=== PATIENT | female | born 1975 | race Caucasian/White ===

== ENCOUNTER → 2016-07-19 | Outpatient (CLI) | payer OTHER ==
[~2016-07-19] MED LIST: ALBUAER INH; ALPR0.25 PO; ASPI81TA28 PO; CLR10 PO; CRFUDL PO; CYCL10TA6 PO; ESTR1TAB2 PO; FLUO10CA48 PO; PREG100C PO; PROM25TA9 PO; PRT40 PO; SUMA100T16 PO
[2016-07-19 12:27] LABS: BASO % 0.9 %; BASO ABS # 0.08 K/uL (0-0.2); COMPLETE YES; HEMATOCRIT 37.3 % (37-47); IG% 0.2 %; LYMPH % 26.2 %; LYMPH ABS # 2.24 K/uL (1.2-3.4); MEAN CELL VOLUME 86.1 fL (80-100); MEAN CORPUSCULAR HEMOGLOBIN 29.8 pg (25-34); MEAN CORPUSCULAR HGB CONC 34.6 g/dl (32-36); MEAN PLATELET VOLUME 12.1 fL (7.4-10.4); MONO % 5.5 %; NEUT % 62.2 %; PLATELET COUNT 249 K/uL (130-400); RED BLOOD COUNT 4.33 M/uL (4.2-5.4); WHITE BLOOD COUNT 8.55 K/uL (4.8-10.8)
[2016-07-19 13:07] LABS: ALB/GLOB RATIO 0.9 (0.9-2); ALKALINE PHOSPHATASE 151 U/L (45-117); ALT/SGPT 45 U/L (12-78); AST/SGOT 18 U/L (15-37); BLOOD UREA NITROGEN 18 mg/dl (7-18); BUN/CREATININE RATIO 19.1 (10-20); CALCIUM 8.4 mg/dl (8.5-10.1); CARBON DIOXIDE 21 mmol/L (21-32); CHLORIDE 102 mmol/L (98-107); CHOLESTEROL 287 mg/dl (0-200); CHOLESTEROL/HDL RATIO 11.5; CREATININE 0.96 mg/dl (0.60-1.20); GLUCOSE 106 mg/dl (70-99); HDL CHOLESTEROL 25 mg/dl; POTASSIUM 3.4 mmol/L (3.5-5.1); SODIUM 138 mmol/L (136-145); TRIGLYCERIDES 1196 mg/dl (0-150)
[2016-07-19 13:24] LABS: ESTIMATED AVERAGE GLUCOSE 117 mg/dl; HA1C FLAG Normal (Normal)
== END | disposition home or self-care (01) ==
LOC: C.LABPBG 08:37
PROVIDERS: ATTEND Internal Medicine
DX: Z86.39 Personal history of other endocrine, nutritional and metabolic disease (principal)

== ENCOUNTER → 2017-03-18 | Outpatient (CLI) | payer OTHER ==
[2017-03-18 12:19] LABS: BASO % 0.5 %; BASO ABS # 0.05 K/uL (0-0.2); COMPLETE YES; EOS % 3.8 %; HEMATOCRIT 38.9 % (37-47); IG% 0.2 %; LYMPH % 26.3 %; LYMPH ABS # 2.41 K/uL (1.2-3.4); MEAN CELL VOLUME 89.2 fL (80-100); MEAN CORPUSCULAR HGB CONC 33.7 g/dl (32-36); MONO % 6.7 %; NEUT % 62.5 %; PLATELET COUNT 237 K/uL (130-400); RED BLOOD COUNT 4.36 M/uL (4.2-5.4); WHITE BLOOD COUNT 9.15 K/uL (4.8-10.8)
[2017-03-18 12:43] LABS: ESTIMATED AVERAGE GLUCOSE 114 mg/dl; HA1C FLAG Normal (Normal)
[2017-03-18 17:45] LABS: ALT/SGPT 45 U/L (12-78); AST/SGOT 27 U/L (15-37); BLOOD UREA NITROGEN 17 mg/dl (7-18); BUN/CREATININE RATIO 18.9 (10-20); CALCIUM 9.1 mg/dl (8.5-10.1); CARBON DIOXIDE 27 mmol/L (21-32); CHLORIDE 104 mmol/L (98-107); CREATININE 0.91 mg/dl (0.60-1.20); GLUCOSE 81 mg/dl (70-99); POTASSIUM 3.8 mmol/L (3.5-5.1); SODIUM 138 mmol/L (136-145)
[2017-03-18 17:56] LABS: ALB/GLOB RATIO 0.9 (0.9-2); ALKALINE PHOSPHATASE 129 U/L (45-117)
[2017-03-18 18:04] LABS: LYME DISEASE AB IGG NEG (NEG); LYME DISEASE AB IGM NEG (NEG)
== END | disposition home or self-care (01) ==
LOC: C.LABPBG 10:55
PROVIDERS: ATTEND Internal Medicine
DX: M79.7 Fibromyalgia (principal); E78.1 Pure hyperglyceridemia; I10 Essential (primary) hypertension; E78.6 Lipoprotein deficiency; E78.5 Hyperlipidemia, unspecified; G89.29 Other chronic pain; G62.9 Polyneuropathy, unspecified

== ENCOUNTER → 2017-06-03 | Outpatient (CLI) | payer OTHER ==
[2017-06-03 17:57] LABS: BLOOD UREA NITROGEN 13 mg/dl (7-18); CALCIUM 8.5 mg/dl (8.5-10.1); CARBON DIOXIDE 26 mmol/L (21-32); CREATININE 1.58 mg/dl (0.60-1.20); GLUCOSE,FASTING 101 mg/dl (70-99); POTASSIUM 3.8 mmol/L (3.5-5.1); SODIUM 137 mmol/L (136-145)
[2017-06-03 18:00] LABS: CHOLESTEROL 261 mg/dl (0-200)
== END | disposition home or self-care (01) ==
LOC: C.LABPBG 15:29
PROVIDERS: ATTEND Physician Assistant
DX: E78.5 Hyperlipidemia, unspecified (principal)

== ENCOUNTER → 2017-07-15 | Outpatient (CLI) | payer OTHER ==
[2017-07-15 11:51] LABS: HEMOGLOBIN A1C 5.6 % (4.5-5.6)
[2017-07-15 11:59] LABS: ALBUMIN 3.3 gm/dl (3.4-5.0); BLOOD UREA NITROGEN 15 mg/dl (7-18); CALCIUM 8.5 mg/dl (8.5-10.1); CARBON DIOXIDE 23 mmol/L (21-32); CREATININE 1.03 mg/dl (0.60-1.20); GLUCOSE 138 mg/dl (70-99); POTASSIUM 3.4 mmol/L (3.5-5.1); SODIUM 134 mmol/L (136-145)
== END | disposition home or self-care (01) ==
LOC: C.LABPBG 07:44
PROVIDERS: ATTEND Internal Medicine
DX: N64.52 Nipple discharge (principal); E88.81 Metabolic syndrome and other insulin resistance; N17.9 Acute kidney failure, unspecified

== ENCOUNTER 2022-02-07 21:28 | Inpatient (IN) ==
[2022-02-07] MEDS ORDERED: ONDANSETRON INJ 2 MG/ML 2 ML VIAL ONE (21:33)
[2022-02-07] MEDS ORDERED: ONDANSETRON INJ 2 MG/ML 2 ML VIAL IV STA (21:33)
[2022-02-07] MEDS ORDERED: diphenhydrAMINE 50 MG/ML VIAL IV STA (21:33)
[2022-02-07] MEDS ORDERED: diphenhydrAMINE 50 MG/ML VIAL ONE (21:33)
[2022-02-07] MEDS ORDERED: OPTIRAY 300 500mL IV ONE (21:45)
[2022-02-07 21:56] LABS: Basophils # (auto) 0.09 K/uL (0-0.2); Basophils % (auto) 1.1 %; Eosinophils # (auto) 0.37 K/uL (0-0.50); Eosinophils % (auto) 4.5 %; Hematocrit (blood only) 37.8 % (34.1-44.9); Immature Granulocytes # (auto) 0.03 K/uL (0.00-0.02); Immature Granulocytes % (auto) 0.4 %; Lymphocytes # (auto) 2.48 K/uL (1.2-3.4); Mean Corpuscular Hemoglobin 30.7 pg (25.0-34.0); Mean Corpuscular Hgb Conc 34.4 g/dL (32.0-36.0); Mean Corpuscular Volume 89.2 fL (80.0-100.0); Mean Platelet Volume 10.8 fL (9.4-12.3); Monocytes # (auto) 0.63 K/uL (0.24-0.82); Monocytes % (auto) 7.6 %; Neutrophils # (auto) 4.66 K/uL (1.4-6.5); Neutrophils % (auto) 56.4 %; Platelet Count 246 K/uL (130-400); RDW Coefficient of Variation 12.2 % (11.5-14.5); RDW Standard Deviation 39.8 fL (36.4-46.3); Red Blood Count 4.24 M/uL (3.93-5.22); White Blood Count 8.26 K/ul (4.8-10.8)
[2022-02-07 22:04] LABS: iSTAT Creatinine 1.1 mg/dl (0.6-1.3); iSTAT Hemoglobin 13.3 g/dl (12.0-16.0); iSTAT Ionized Calcium 1.06 mmol/l (1.12-1.32); iSTAT Potassium 3.2 mmol/L (3.3-5.0)
[2022-02-07 22:13] LABS: Partial Thromboplastin Time 26.5 Seconds (21.0-31.0); Prothrombin Time 10.7 Seconds (9.0-12.0)
--- NOTE | 2022-02-07 22:13 | Emergency Department Note ---
History of Present Illness General Chief complaint: Stroke Alert History of Present Illness Maximum Pain Intensity: 8 38-year-old female presents to the ED with a chief complaint of strokelike symptoms. The patient states that she has been feeling a little off for the past several days. She states that her balance seem to be a little off and her vision has not been completely normal. She states its been a little blurry. She states that she has been getting dizzy on occasion. Tonight at about 8:15 PM the patient had a sudden sharp headache in the frontal portion of the head followed by some paresthesias and numbness in the right side. She specifically reports some paresthesias and numbness in the right face, right arm and right leg. She also developed sudden onset of weakness in the right leg, right arm and right face. The patient states that she called EMS and was transported here for evaluation. EMS contacted me prior to arrival and a stroke alert was called. She was sent to CT scan upon arrival. The patient reports a previous history of " TIA". This occurred about 5 years ago. When she describes it, she states that she did not recover for months. She did have a complete recovery, however. The patient states that she does not take daily aspirin. She is not on any blood thinners. Prehospital EKG shows a sinus rhythm. Prehospital blood sugar was normal. Home Medications Medication Instructions Recorded Confirmed Type latanoprost 0.005 % eye drops 1 drops ophthalmic (eye) QPM #2.5 11/26/18 02/07/22 Rx mL compressor, for nebulizer #1 ea 03/11/19 02/07/22 Rx sumatriptan succinate 100 mg tablet 100 mg PO Q2H PRN Migraine Headache 05/01/19 02/07/22 History albuterol sulfate 2.5 mg/0.5 mL 2.5 mg (0.5 mL) inhalation Q6H PRN 09/12/20 02/07/22 Rx solution for nebulization shortness of breath or wheezing #30 ea blood-glucose meter (OneTouch #1 ea 09/13/20 02/07/22 Rx Ultra2 Meter kit) albuterol sulfate 90 mcg/actuation 2 puff inhalation Q6H PRN 03/20/21 02/07/22 Rx aerosol inhaler (Proventil HFA) shortness of breath or wheezing #6.7 grams cholecalciferol (vitamin D3) 50 50 mcg PO DAILY #90 tabs 08/14/21 02/07/22 Rx mcg (2,000 unit) tablet estradiol 1 mg tablet 1 mg PO DAILY #90 tabs 09/11/21 02/07/22 Rx fluticasone 100 mcg-salmeterol 50 1 inh inhalation BID #60 ea 10/16/21 02/07/22 Rx mcg/dose blistr powdr for inhalation (Wixela Inhub) OneTouch Ultra Test (blood sugar #100 ea 11/06/21 02/07/22 Rx diagnostic) promethazine 25 mg tablet 25 mg PO Q6H PRN nausea and 12/20/21 02/07/22 Rx vomiting #10 tabs cholestyramine-aspartame 4 gram 4 g PO BID #60 ea 02/07/22 02/07/22 Rx oral powder for susp in a packet (Cholestyramine Light) ezetimibe 10 mg tablet 10 mg PO DAILY #30 tabs 02/07/22 02/07/22 Rx famotidine 20 mg tablet (Heartburn 20 mg PO BID 02/07/22 02/07/22 History Relief (famotidine)) fluoxetine 10 mg capsule 10 mg PO DAILY 02/07/22 02/07/22 History losartan 50 mg tablet 50 mg PO DAILY #30 tabs 02/07/22 02/07/22 Rx potassium chloride 20 mEq 20 meq PO BID 02/07/22 02/07/22 History tablet,extended release trazodone 50 mg tablet 50 mg PO DAILY #30 tabs 02/07/22 02/07/22 Rx Allergies Allergy/AdvReac Type Severity Reaction Status Date / Time hydromorphone Allergy Intermediate hives, Verified 02/07/22 07:03 nausea, vomiting Iodinated Contrast Media Allergy Intermediate rash, Verified 02/07/22 07:03 vomiting magnesium sulfate Allergy Intermediate hives, Verified 02/07/22 07:03 nausea, vomiting ondansetron Allergy Intermediate n/v, hives Verified 02/07/22 07:03 diltiazem Allergy Unknown Unknown Verified 02/07/22 07:03 gemfibrozil [From Lopid] Allergy Unknown Unknown Verified 02/07/22 07:03 lisinopril Allergy Unknown Unknown Verified 02/07/22 07:03 phenytoin [From Dilantin] Allergy Unknown Unknown Verified 02/07/22 07:03 Knmwfqk-CXS-MpB Reductase AdvReac Intermediate Muscle pain Verified 02/07/22 07:03 Inhibitor [Ssmdwqv-Pig-Gbk Reductase Inhibitor] Past Med/Surg History Medical History Anxiety Asthma Cervicalgia Depression Dyslipidemia (high LDL; low HDL) Elevated triglycerides with high cholesterol Eye movement abnormality Fibromyalgia Glaucoma Hearing loss HTN (hypertension) HTN, goal below 140/90 Hypertriglyceridemia Hypokalemia Kidney stone Metabolic syndrome X Migraine headache NAFLD (nonalcoholic fatty liver disease) Pre-diabetes Right sided weakness Vitamin D deficiency Surgical History History of section History of cholecystectomy History of dilation and curettage History of hysterectomy Family History Father Family history of anxiety disorder Colorectal cancer Coronary heart disease Diabetes Hypertension Kidney disease Prostate cancer Mother Family history of anxiety disorder Colorectal cancer Depression Family history of gallbladder disease Hypertension Kidney disease Breast cancer Grandfather (Paternal) Myocardial infarction Denies family history of Ovarian cancer Social History Smoking Status: Former smoker Second Hand Exposure: No; Hx Alcohol Use: No Hx Substance Use: No Preferred Language: Barbadian Communication Ability: Effective Visual Impairment: No Limitations Hearing Ability: Normal [place] Performer Required: No Beliefs That Will Affect Care: None marital status: Current Living Situation: Family current occupational status: disabled Feels Safe at Home: Yes Childhood Exposure to Second-Hand Smoke: No Diet Comment: regular caffeine: No (once in a while) during the past year weight has: remained stable Dental Care, Regularly: Yes Physical Activity Frequency: 3-4 Times per Week Physical Activity Frequency Comment: walking Seatbelt Use: always Sunscreen Use: Yes Review of Systems A total of 10 systems reviewed and were otherwise negative Physical Exam Vital Signs Vital Signs - 24 hr 02/07/22 21:59 02/07/22 21:59 02/07/22 21:54 Temperature 36.9 C Temperature Source Oral Pulse Rate 97 H 89 Pulse Rate [Finger] Pulse Rate from SpO2 Sensor 88 Pulse Rhythm [Finger] Pulse Strength [Finger] Respiratory Rate 18 14 Respiratory Effort / Characteristics Respiratory Depth Blood Pressure 174/101 H 168/82 H Blood Pressure [Left Arm] Blood Pressure Mean 125 110 Blood Pressure Mean [Left Arm] Blood Pressure Position [Left Arm] Pulse Oximetry 97 97 98 Oxygen Delivery Method Room Air Room Air Room Air Sepsis Recent Fever Within 48 Hours No Sepsis New/Unexplained Change in Mental Status No Sepsis Action Taken by Nursing No Action Required 02/07/22 22:00 02/07/22 22:10 02/07/22 22:19 Temperature Temperature Source Pulse Rate 91 H 92 H 89 Pulse Rate [Finger] Pulse Rate from SpO2 Sensor 93 H 94 H 88 Pulse Rhythm [Finger] Pulse Strength [Finger] Respiratory Rate 15 14 18 Respiratory Effort / Characteristics Respiratory Depth Blood Pressure 155/130 H 160/99 H 161/96 H Blood Pressure [Left Arm] Blood Pressure Mean 138 119 117 Blood Pressure Mean [Left Arm] Blood Pressure Position [Left Arm] Pulse Oximetry 97 97 98 Oxygen Delivery Method Sepsis Recent Fever Within 48 Hours Sepsis New/Unexplained Change in Mental Status Sepsis Action Taken by Nursing 02/07/22 22:20 02/07/22 22:30 02/07/22 22:56 Temperature Temperature Source Pulse Rate 89 89 Pulse Rate [Finger] 82 Pulse Rate from SpO2 Sensor 89 87 Pulse Rhythm [Finger] Regular Pulse Strength [Finger] Normal Respiratory Rate 14 20 17 Respiratory Effort / Characteristics Non-Labored Spontaneous Respiratory Depth Normal Blood Pressure 143/87 H 151/82 H Blood Pressure [Left Arm] 138/85 Blood Pressure Mean 105 105 Blood Pressure Mean [Left Arm] 102 Blood Pressure Position [Left Arm] Sitting Pulse Oximetry 97 97 95 Oxygen Delivery Method Room Air Sepsis Recent Fever Within 48 Hours Sepsis New/Unexplained Change in Mental Status Sepsis Action Taken by Nursing CONSTITUTIONAL/VITAL SIGNS: Reviewed / noted above. GENERAL: Non-toxic in appearance. INTEGUMENTARY: Warm, dry, and [place]. HEAD: Normocephalic. EYES: without scleral icterus or trauma. ENT/OROPHARYNX: clear and moist. LYMPHADENOPATHY/NECK: Is supple without lymphadenopathy or meningismus. RESPIRATORY: Clear to auscultation bilaterally. No increased work of breathing. CARDIOVASCULAR: Regular rate and rhythm. GI/ABDOMEN: Soft and nontender. No organomegaly or pulsatile mass. EXTREMITIES: Warm and well perfused. NEUROLOGICAL: The patient has right-sided facial weakness. Reports sensory change on the right side of face compared to left, right arm compared to the left and right leg compared to the left. She also has right arm weakness. Essentially unable to lift it off the bed although when I raise the arm for her, she slowly lowers it. Similar occurrence with the right leg on my exam. Also with regards to the right facial weakness, when asked to smile, she does not raise her right side of her face, however when I asked her to blow out air from her cheeks, the air leaks on the left side of the mouth. PSYCHIATRIC: normal affect. MUSCULOSKELETAL: Normally developed with good muscle tone. TRIAGE NURSING DOCUMENTATION REVIEWED. Course Administered Medications Discontinued Medications Acetaminophen (Acetaminophen 1000 Mg/100 Ml Iv) Confirm Administered Dose 1,000 mg IV .STK-MED ONE Stop: 02/07/22 22:30 Last Admin: 02/07/22 22:34 Dose: 1,000 mg Documented By: ZE Diphenhydramine HCl (Diphenhydramine 50 Mg/Ml Vial) Confirm Administered Dose 50 mg .ROUTE .STK-MED ONE Stop: 02/07/22 21:34 Last Admin: 02/07/22 21:35 Dose: 50 mg Documented By: JOSE ALEJANDRO Diphenhydramine HCl (Diphenhydramine 50 Mg/Ml Vial) 50 mg IV NOW STA Stop: 02/07/22 21:34 Last Admin: 02/07/22 21:56 Dose: Not Given Documented By: JOSE ALEJANDRO Tenecteplase 16 mg/ Syringe 3.2 mls @ 38.4 mls/min IV NOW ONE; Protocol Stop: 02/07/22 22:30 Last Admin: 02/07/22 22:25 Dose: 38.4 mls/min Documented By: ZE Co-signed By: FELECIA Acetaminophen (Ofirmev) 1,000 mg in 100 mls @ 400 mls/hr IV NOW STA Stop: 02/07/22 22:43 Last Admin: 02/07/22 22:36 Dose: Not Given Documented By: ZE Ioversol (Optiray 300 500ml) 95 ml IV ONCE ONE Stop: 02/07/22 21:46 Last Admin: 02/07/22 21:45 Dose: 95 ml Documented By: TERRELL Ondansetron HCl (Ondansetron Inj 2 Mg/Ml 2 Ml Vial) Confirm Administered Dose 4 mg .ROUTE .STK-MED ONE Stop: 02/07/22 21:34 Last Admin: 02/07/22 21:35 Dose: 4 mg Documented By: JOSE ALEJANDRO Ondansetron HCl (Ondansetron Inj 2 Mg/Ml 2 Ml Vial) 4 mg IV NOW STA Stop: 02/07/22 21:34 Last Admin: 02/07/22 21:56 Dose: Not Given Documented By: JOSE ALEJANDRO Sodium Chloride (Sodium Chloride 0.9% 10ml Flush) 20 ml IV NOW STA Stop: 02/07/22 22:19 Last Admin: 02/07/22 22:25 Dose: 20 ml Documented By: ZE Critical Care Time Critical Care Time: Yes Total Critical Care Time: 45 I have personally spent 45 minutes of critical care time in the direct ma nagement of this patient. This includes bedside care, interpretation of diagnostic studies, and testing, discussion with consultants, patient, and family members, and other required patient management activities. This 45 minutes is in excess of all separately billable procedures. Medical Decision Making Differential Diagnosis Differential includes acute coronary syndrome, myocardial infarction, CVA, TIA, anemia, infection, pneumonia, UTI, pyelonephritis, poor nutrition, dehydration, electrolyte disturbance,hypoglycemia. Medical Records Attestation: I reviewed the patient's medical records. Home Medications Current Medication List: was personally reviewed by me Laboratory Data Attestation: I reviewed the patient's lab results. Result diagrams: 02/07/22 21:46 02/07/22 21:46 Lab Results 02/07/22 02/07/22 02/07/22 Range/Units 21:43 21:46 21:46 WBC (4.8-10.8) K/ul RBC (3.93-5.22) M/uL Hgb (12.0-16.0) g/dl POC Hgb (12.0-16.0) g/dl Hct (34.1-44.9) % POC Hct (37-47) % MCV (80.0-100.0) fL MCH (25.0-34.0) pg MCHC (32.0-36.0) g/dL RDW Std Deviation (36.4-46.3) fL RDW Coeff of Johnna (11.5-14.5) % Plt Count (130-400) K/uL MPV (9.4-12.3) fL Immature Gran % (Auto) % Neut % (Auto) % Lymph % (Auto) % Butler % (Auto) % Eos % (Auto) % Baso % (Auto) % Neut # (Auto) (1.4-6.5) K/uL Lymph # (Auto) (1.2-3.4) K/uL Butler # (Auto) (0.24-0.82) K/uL Eos # (Auto) (0-0.50) K/uL Baso # (Auto) (0-0.2) K/uL Immature Gran # (Auto) (0.00-0.02) K/uL PT (9.0-12.0) Seconds INR (0.9-1.1) APTT (21.0-31.0) Seconds PTT Ratio POC Sodium (135-144) mmol/L Sodium (136-145) mmol/L POC Potassium (3.3-5.0) mmol/L Potassium (3.5-5.1) mmol/L POC Chloride (101-112) mmol/L Chloride (98-107) mmol/L Carbon Dioxide (21-32) mmol/L POC Total CO2 (24-31) mmol/L Anion Gap (3-11) POC Anion Gap (16-25) mmol/L POC BUN (7-18) mg/dl BUN (6-23) mg/dl Creatinine (0.6-1.2) mg/dl POC Creatinine (0.6-1.3) mg/dl Est Cr Clr Drug Dosing ml/min Est GFR ( Amer) ml/min Est GFR (Non-Af Amer) ml/min BUN/Creatinine Ratio (10-20) Glucose (70-99(Fasting)) mg/dl POC Glucose 87 (70-99) mg/dl POC Glucose (other) (70-99) mg/dl Calcium (8.5-10.1) mg/dl POC Ioniz Calcium Ashley (1.12-1.32) mmol/l Magnesium (1.7-2.4) mg/dl Total Bilirubin (0.2-1.0) mg/dl AST (13-39) U/L ALT (7-52) U/L Alkaline Phosphatase (34-104) U/L Troponin I High Sens (0-14) pg/ml Total Protein (6.0-8.3) gm/dl Albumin (3.4-5.0) gm/dl Globulin (2.5-4.0) gm/dl Albumin/Globulin Ratio (0.9-2) HCG, Qual Negative (Negative) SARS-CoV-2, RNA, NAAT (NEGATIVE) Blood Type A Positive Antibody Screen NEGATIVE 02/07/22 02/07/22 02/07/22 Range/Units 21:46 21:46 21:46 WBC 8.26 (4.8-10.8) K/ul RBC 4.24 (3.93-5.22) M/uL Hgb 13.0 (12.0-16.0) g/dl POC Hgb (12.0-16.0) g/dl Hct 37.8 (34.1-44.9) % POC Hct (37-47) % MCV 89.2 (80.0-100.0) fL MCH 30.7 (25.0-34.0) pg MCHC 34.4 (32.0-36.0) g/dL RDW Std Deviation 39.8 (36.4-46.3) fL RDW Coeff of Johnna 12.2 (11.5-14.5) % Plt Count 246 (130-400) K/uL MPV 10.8 (9.4-12.3) fL Immature Gran % (Auto) 0.4 % Neut % (Auto) 56.4 % Lymph % (Auto) 30.0 % Butler % (Auto) 7.6 % Eos % (Auto) 4.5 % Baso % (Auto) 1.1 % Neut # (Auto) 4.66 (1.4-6.5) K/uL Lymph # (Auto) 2.48 (1.2-3.4) K/uL Butler # (Auto) 0.63 (0.24-0.82) K/uL Eos # (Auto) 0.37 (0-0.50) K/uL Baso # (Auto) 0.09 (0-0.2) K/uL Immature Gran # (Auto) 0.03 H (0.00-0.02) K/uL PT 10.7 (9.0-12.0) Seconds INR 1.0 (0.9-1.1) APTT 26.5 (21.0-31.0) Seconds PTT Ratio 1.0 POC Sodium (135-144) mmol/L Sodium 134 L (136-145) mmol/L POC Potassium (3.3-5.0) mmol/L Potassium 3.2 L (3.5-5.1) mmol/L POC Chloride (101-112) mmol/L Chloride 100 (98-107) mmol/L Carbon Dioxide 29 (21-32) mmol/L POC Total CO2 (24-31) mmol/L Anion Gap 5 (3-11) POC Anion Gap (16-25) mmol/L POC BUN (7-18) mg/dl BUN 16 (6-23) mg/dl Creatinine 1.09 (0.6-1.2) mg/dl POC Creatinine (0.6-1.3) mg/dl Est Cr Clr Drug Dosing 49.4 ml/min Est GFR ( Amer) 69.5 ml/min Est GFR (Non-Af Amer) 60.0 ml/min BUN/Creatinine Ratio 14.7 (10-20) Glucose 74 (70-99(Fasting)) mg/dl POC Glucose (70-99) mg/dl POC Glucose (other) (70-99) mg/dl Calcium 8.5 (8.5-10.1) mg/dl POC Ioniz Calcium Ashley (1.12-1.32) mmol/l Magnesium 2.1 (1.7-2.4) mg/dl Total Bilirubin 0.4 (0.2-1.0) mg/dl AST 17 (13-39) U/L ALT 15 (7-52) U/L Alkaline Phosphatase 80 (34-104) U/L Troponin I High Sens 3.1 (0-14) pg/ml Total Protein 7.1 (6.0-8.3) gm/dl Albumin 4.0 (3.4-5.0) gm/dl Globulin 3.1 (2.5-4.0) gm/dl Albumin/Globulin Ratio 1.3 (0.9-2) HCG, Qual (Negative) SARS-CoV-2, RNA, NAAT (NEGATIVE) Blood Type Antibody Screen 02/07/22 02/07/22 Range/Units 21:51 22:05 WBC (4.8-10.8) K/ul RBC (3.93-5.22) M/uL Hgb (12.0-16.0) g/dl POC Hgb 13.3 (12.0-16.0) g/dl Hct (34.1-44.9) % POC Hct 39 (37-47) % MCV (80.0-100.0) fL MCH (25.0-34.0) pg MCHC (32.0-36.0) g/dL RDW Std Deviation (36.4-46.3) fL RDW Coeff of Johnna (11.5-14.5) % Plt Count (130-400) K/uL MPV (9.4-12.3) fL Immature Gran % (Auto) % Neut % (Auto) % Lymph % (Auto) % Butler % (Auto) % Eos % (Auto) % Baso % (Auto) % Neut # (Auto) (1.4-6.5) K/uL Lymph # (Auto) (1.2-3.4) K/uL Butler # (Auto) (0.24-0.82) K/uL Eos # (Auto) (0-0.50) K/uL Baso # (Auto) (0-0.2) K/uL Immature Gran # (Auto) (0.00-0.02) K/uL PT (9.0-12.0) Seconds INR (0.9-1.1) APTT (21.0-31.0) Seconds PTT Ratio POC Sodium 138 (135-144) mmol/L Sodium (136-145) mmol/L POC Potassium 3.2 L (3.3-5.0) mmol/L Potassium (3.5-5.1) mmol/L POC Chloride 99 L (101-112) mmol/L Chloride (98-107) mmol/L Carbon Dioxide (21-32) mmol/L POC Total CO2 26 (24-31) mmol/L Anion Gap (3-11) POC Anion Gap 18.0 (16-25) mmol/L POC BUN 15 (7-18) mg/dl BUN (6-23) mg/dl Creatinine (0.6-1.2) mg/dl POC Creatinine 1.1 (0.6-1.3) mg/dl Est Cr Clr Drug Dosing ml/min Est GFR ( Amer) ml/min Est GFR (Non-Af Amer) ml/min BUN/Creatinine Ratio (10-20) Glucose (70-99(Fasting)) mg/dl POC Glucose (70-99) mg/dl POC Glucose (other) 78 (70-99) mg/dl Calcium (8.5-10.1) mg/dl POC Ioniz Calcium Ashley 1.06 L (1.12-1.32) mmol/l Magnesium (1.7-2.4) mg/dl Total Bilirubin (0.2-1.0) mg/dl AST (13-39) U/L ALT (7-52) U/L Alkaline Phosphatase (34-104) U/L Troponin I High Sens (0-14) pg/ml Total Protein (6.0-8.3) gm/dl Albumin (3.4-5.0) gm/dl Globulin (2.5-4.0) gm/dl Albumin/Globulin Ratio (0.9-2) HCG, Qual (Negative) SARS-CoV-2, RNA, NAAT NEGATIVE (NEGATIVE) Blood Type Antibody Screen Imaging Data My Impression: Chest x-ray: Per my interpretation shows no acute disease. No pneumothorax or pneumonia. Radiologist's Impression: Noncontrast CT scan of the brain: Per the radiologist, there is no acute disease. CTA head and neck did not show any occlusive disease. ECG Data Attestation: I personally reviewed and interpreted this ECG as follows: Additional Comments: Twelve-lead EKG: Per my interpretation shows normal sinus rhythm at a rate of 90. No ST elevation. No PVCs. Normal QTC. MDM Narrative 46-year-old female presents with a chief complaint of strokelike symptoms. Stroke alert was called prior to the patient's arrival. Stroke neurology was contacted. I did speak with Dr. Rosalina Kolb, [facility] neurologist, about the patient. She evaluated the patient in the ED through telemedicine service. The patient does have some right-sided face, right arm and right leg deficits. The CT scan of the brain as well as CT angiograms of the head and neck did not show any acute abnormalities. Chest x-ray was negative for acute disease. EKG shows a normal sinus rhythm. Blood work was unremarkable. The de cision was made to provide thrombolytics after risk versus benefits and verbal consent was obtained. The patient received TNKase. She was also given some IV Tylenol for headache. Prior to the CT scan she was given IV Benadryl and IV Zofran as she reports an allergy to IV contrast. The patient will be admitted by the hospitalist service for further evaluation and care. Impression & Plan Acute cerebrovascular accident (CVA) Discharge Plan Visit Data Chief Complaint: Stroke Alert ED Provider: Juan Ray Discharge Problem: Acute cerebrovascular accident (CVA) Patient Disposition: Being Evaluated by Hospitalist Forms Stand Alone Forms: [facility] Prescriptions Prescriptions: No Action albuterol sulfate 2.5 mg/0.5 mL solution for nebulization 2.5 mg INH Q6H PRN (Reason: shortness of breath or wheezing) Qty: 30 3RF (DME) blood-glucose meter [OneTouch Ultra2 Meter] Kit See Dose Instructions .ROUTE .MEDSUPPLY Qty: 1 0RF Rx Instructions: As directed cholecalciferol (vitamin D3) 50 mcg (2,000 unit) tablet 50 mcg PO DAILY Qty: 90 3RF estradiol 1 mg tablet 1 mg PO DAILY Qty: 90 3RF fluticasone propion-salmeterol [Wixela Inhub] 100-50 mcg/dose blister with device 1 inh inhalation BID Qty: 60 5RF (DME) OneTouch Ultra Test Strip See Rx Instructions .Route Qty: 100 11RF Rx Instructions: TEST 1-3 TIMES DAILY. DX: R73.03 promethazine 25 mg tablet 25 mg PO Q6H PRN (Reason: nausea and vomiting) Qty: 10 3RF ezetimibe 10 mg tablet 10 mg PO DAILY Qty: 30 2RF losartan 50 mg tablet 50 mg PO DAILY Qty: 30 2RF (DME) compressor, for nebulizer device See Dose Instructions .ROUTE .MEDSUPPLY Qty: 1 0RF Dose Instruction: As directed Rx Instructions: As directed albuterol sulfate [Proventil HFA] 90 mcg/actuation HFA aerosol inhaler 2 puff INH Q6H PRN (Reason: shortness of breath or wheezing) Qty: 6.7 5RF sumatriptan succinate 100 mg tablet 100 mg PO Q2H PRN (Reason: Migraine Headache) Rx Instructions: Take 1 tablet at onset of headache; may repeat in 2 hrs if needed. Max 200mg/day. latanoprost 0.005 % drops 1 drops OP QPM Qty: 2.5 3RF trazodone 50 mg tablet 50 mg PO DAILY Qty: 30 2RF Cholestyramine Light 4 gram powder in packet 4 g PO BID Qty: 60 1RF Rx Instructions: administer w/meal; avoid other meds within 1hr before or 4-6hr after dose famotidine [Heartburn Relief (famotidine)] 20 mg tablet 20 mg PO BID potassium chloride 20 mEq tablet extended release 20 meq PO BID fluoxetine 10 mg capsule 10 mg PO DAILY Referrals Referrals: Jas Galeas MD [Primary Care Provider] -
[2022-02-07] MEDS ORDERED: STAT IV STA (22:18)
[2022-02-07] MEDS ORDERED: SODIUM CHLORIDE 0.9% 10ML FLUSH IV STA (22:18)
[2022-02-07 22:22] LABS: Pregnancy Test, Serum Negative (Negative)
[2022-02-07 22:23] LABS: Albumin Globulin Ratio 1.3 (0.9-2); BUN Creatinine Ratio 14.7 (10-20); Bilirubin,Total 0.4 mg/dl (0.2-1.0); Calcium 8.5 mg/dl (8.5-10.1); Creatinine Clr Calc Pharmacy 49.4 ml/min; Est GFR (African American) 69.5 ml/min; Globulin 3.1 gm/dl (2.5-4.0); Magnesium 2.1 mg/dl (1.7-2.4); Potassium 3.2 mmol/L (3.5-5.1); Total Protein 7.1 gm/dl (6.0-8.3)
[2022-02-07 22:25] LABS: Troponin I High Sensitivity 3.1 pg/ml (0-14)
[2022-02-07] MEDS ORDERED: ACETAMINOPHEN 1000 MG/100 ML IV IV ONE (22:29)
[2022-02-07] MEDS ORDERED: ACETAMINOPHEN 1,000 MG/100 ML VIAL IV STA (22:29)
[2022-02-07] MEDS ORDERED: TENECTEPLASE 16 MG in SYRINGE 0 ML IV ONE (22:29)
[2022-02-07] MEDS ORDERED: No Aspirin within 24hrs of THROMBOLYTIC-Stroke PO SCH (22:30)
--- NOTE | 2022-02-07 23:13 | History & Physical Report ---
Date of Service February 07, 2022 Assessment & Plan (1) Stroke-like symptom: Plan: 46yo Female PMH Hx TIA Anxiety Depression Migraines Hypertriglyceridemia HTN metabolic syndrome asthma chronic pain syndrome fibromyalgia crohn's disease admitted for stroke like symptoms. Stroke like symptoms -started 8:15 on 02/07, received tenecteplase within 3hr of symptoms -CTA head neck stat read negative for acute findings, normal architecture -CXR unremarkable -consulted neuro -neuro check q2h -admitted to ICU -ordered echo -ordered hypercoagulability panel -ordered PT/OT -ordered dysphagia screen -ordered speech eval -NPO Hypertriglyceridemia -Triglycerides 580 -Cholesterol 234 -continue Ezetinibe -Continue cholestyramine Hypokalemia -K 3.2 -ordered renin, aldosterone labs -continue KCl 20mg PO BID HTN -continue losartan Metabolic Syndrome -last A1c 5.4 on 12/21, ordered recheck -BSG checks Anxiety/Depression -continue fluoxetine Glaucoma -continue latanoprost eye drops GERD -continue famotidine Asthma -albuterol inhaler PRN FENa: NPO Code Status: Full DVT PPX: SCDs PT/OT: ordered Case Management: pending Dispo: med/tele Betzaida Sarkar Do PGY 2, FCM (2) Migraine headache: (3) Pre-diabetes: (4) Asthma: (5) Anxiety: (6) Chronic pain disorder: (7) Metabolic syndrome X: (8) Hypertriglyceridemia: (9) HTN, goal below 140/90: (10) Fibromyalgia: (11) IBS (irritable bowel syndrome): (12) Hypokalemia: History of Present Illness Chief Complaint: Stroke like Symptoms Primary Care Provider: Jas Galeas MD 46yo Female PMH Hx TIA Anxiety Depression Migraines Hypertriglyceridemia HTN metabolic syndrome asthma chronic pain syndrome fibromyalgia crohn's disease admitted for stroke like symptoms. She received Tenecteplase in ED, stat read of CT head neck negative for acute findings. Patient complain of feeling 'off' since this saturday, states her balance has been off. Starting yesterday she describes a headache across the front and top of her head, states it 'felt like a lightning strike'. She states tonight around 8:15 the pain became bad, states her vision became blurry, felt more unstable and forgetful, she could not feel or move her right side of body. Patient grijalva not recall any SOB nausea vomiting fever. Patient states she had high triglycerides being managed by her PCP. She had similar symptoms 5 years ago was diagnosed with a TIA started on ASA, however was later taken off ASA per her provider. She has previously gone through a course of PT. Patient has history migraine has not had one for several years, states this felt different from a migraine. Patient states her mom also had strokes in her 50's Allergies Allergy/AdvReac Type Severity Reaction Status Date / Time hydromorphone Allergy Intermediate hives, Verified 02/07/22 07:03 nausea, vomiting Iodinated Contrast Media Allergy Intermediate rash, Verified 02/07/22 07:03 vomiting magnesium sulfate Allergy Intermediate hives, Verified 02/07/22 07:03 nausea, vomiting ondansetron Allergy Intermediate n/v, hives Verified 02/07/22 07:03 diltiazem Allergy Unknown Unknown Verified 02/07/22 07:03 gemfibrozil [From Lopid] Allergy Unknown Unknown Verified 02/07/22 07:03 lisinopril Allergy Unknown Unknown Verified 02/07/22 07:03 phenytoin [From Dilantin] Allergy Unknown Unknown Verified 02/07/22 07:03 Ggglwab-MWD-WmM Reductase AdvReac Intermediate Muscle pain Verified 02/07/22 07:03 Inhibitor [Wllizir-Anr-Hst Reductase Inhibitor] Home Medications Medication Instructions Recorded Confirmed Type latanoprost 0.005 % eye drops 1 drops ophthalmic (eye) QPM #2.5 11/26/18 02/07/22 Rx mL compressor, for nebulizer #1 ea 03/11/19 02/07/22 Rx sumatriptan succinate 100 mg tablet 100 mg PO Q2H PRN Migraine Headache 05/01/19 02/07/22 History albuterol sulfate 2.5 mg/0.5 mL 2.5 mg (0.5 mL) inhalation Q6H PRN 09/12/20 02/07/22 Rx solution for nebulization shortness of breath or wheezing #30 ea blood-glucose meter (OneTouch #1 ea 09/13/20 02/07/22 Rx Ultra2 Meter kit) albuterol sulfate 90 mcg/actuation 2 puff inhalation Q6H PRN 03/20/21 02/07/22 Rx aerosol inhaler (Proventil HFA) shortness of breath or wheezing #6.7 grams cholecalciferol (vitamin D3) 50 50 mcg PO DAILY #90 tabs 08/14/21 02/07/22 Rx mcg (2,000 unit) tablet estradiol 1 mg tablet 1 mg PO DAILY #90 tabs 09/11/21 02/07/22 Rx fluticasone 100 mcg-salmeterol 50 1 inh inhalation BID #60 ea 10/16/21 02/07/22 Rx mcg/dose blistr powdr for inhalation (Wixela Inhub) OneTouch Ultra Test (blood sugar #100 ea 11/06/21 02/07/22 Rx diagnostic) promethazine 25 mg tablet 25 mg PO Q6H PRN nausea and 12/20/21 02/07/22 Rx vomiting #10 tabs cholestyramine-aspartame 4 gram 4 g PO BID #60 ea 02/07/22 02/07/22 Rx oral powder for susp in a packet (Cholestyramine Light) ezetimibe 10 mg tablet 10 mg PO DAILY #30 tabs 02/07/22 02/07/22 Rx famotidine 20 mg tablet (Heartburn 20 mg PO BID 02/07/22 02/07/22 History Relief (famotidine)) fluoxetine 10 mg capsule 10 mg PO DAILY 02/07/22 02/07/22 History losartan 50 mg tablet 50 mg PO DAILY #30 tabs 02/07/22 02/07/22 Rx potassium chloride 20 mEq 20 meq PO BID 02/07/22 02/07/22 History tablet,extended release trazodone 50 mg tablet 50 mg PO DAILY #30 tabs 02/07/22 02/07/22 Rx Past Med/Surg History Medical History Anxiety Asthma Cervicalgia Depression Dyslipidemia (high LDL; low HDL) Elevated triglycerides with high cholesterol Eye movement abnormality Fibromyalgia Glaucoma Hearing loss HTN (hypertension) HTN, goal below 140/90 Hypertriglyceridemia Hypokalemia Kidney stone Metabolic syndrome X Migraine headache NAFLD (nonalcoholic fatty liver disease) Pre-diabetes Right sided weakness Vitamin D deficiency Surgical History History of section History of cholecystectomy History of dilation and curettage History of hysterectomy Family History Father Family history of anxiety disorder Colorectal cancer Coronary heart disease Diabetes Hypertension Kidney disease Prostate cancer Mother Family history of anxiety disorder Colorectal cancer Depression Family history of gallbladder disease Hypertension Kidney disease Breast cancer Grandfather (Paternal) Myocardial infarction Denies family history of Ovarian cancer Social History Smoking Status: Former smoker Second Hand Exposure: No; Hx Alcohol Use: No Hx Substance Use: No Preferred Language: Portuguese Communication Ability: Unable Visual Impairment: No Limitations Hearing Ability: Normal Lan/Wan Engineer Required: No Beliefs That Will Affect Care: None marital status: Single Current Living Situation: Family current occupational status: disabled Feels Safe at Home: Yes Childhood Exposure to Second-Hand Smoke: No Diet Comment: regular caffeine: No (once in a while) during the past year weight has: remained stable Dental Care, Regularly: Yes Physical Activity Frequency: 3-4 Times per Week Physical Activity Frequency Comment: walking Seatbelt Use: always Sunscreen Use: Yes Assistive Devices: None Review of Systems Review of Systems: see hpi Physical Exam Constitutional: well developed, cooperative, + cushingoid and + overweight Eyes: PERRL, conjunctivae normal, anicteric sclerae ENMT: external ear and nose normal, oropharynx normal Neck: trachea midline, no thyromegaly Respiratory: normal respiratory effort, lungs clear to auscultation Cardiovascular: RRR, no murmur, no edema Chest (Breasts): Chest: normal inspection of chest Gastrointestinal (Abdomen): normal bowel sounds, soft, nontender, no hepatosplenomegaly Musculoskeletal: +5 strength in L UE and LE. No movement noted in R LE. Able to lightly squeeze finger with R hand Skin: no rashes, warm and dry Neurologic: Motor/Sensory: + abnormal movement (unable to move right leg, unable to move right arm. ) and + sensory deficit (on right face including forehead, right arm and leg) Cranial Nerves: EOM intact bilaterally, tongue midline and symmetric palate elevation; + abnormal facial strength (right facial droop) and + hearing impairment (on right) Psychiatric: A+Ox3, euthymic affect Results & Data Results & Data ([facility]) Vital Signs (Past 12 Hours) Vital Signs Temp Pulse Pulse Resp BP BP Pulse Ox 02/07/22 22:56 82 17 138/85 95 02/07/22 22:30 89 20 151/82 H 97 02/07/22 22:20 89 14 143/87 H 97 02/07/22 22:19 89 18 161/96 H 98 02/07/22 22:10 92 H 14 160/99 H 97 02/07/22 22:00 91 H 15 155/130 H 97 02/07/22 21:54 89 14 168/82 H 98 02/07/22 21:59 97 02/07/22 21:59 36.9 C 97 H 18 174/101 H 97 O2 Del Method 02/07/22 22:56 Room Air 02/07/22 22:30 02/07/22 22:20 02/07/22 22:19 02/07/22 22:10 02/07/22 22:00 02/07/22 21:54 Room Air 02/07/22 21:59 Room Air 02/07/22 21:59 Room Air Diagnostic Findings Laboratory Results WBC 8.26 K/ul (4.8-10.8) 02/07/22 21:46 RBC 4.24 M/uL (3.93-5.22) 02/07/22 21:46 Hgb 13.0 g/dl (12.0-16.0) 02/07/22 21:46 POC Hgb 13.3 g/dl (12.0-16.0) 02/07/22 21:51 Hct 37.8 % (34.1-44.9) 02/07/22 21:46 POC Hct 39 % (37-47) 02/07/22 21:51 MCV 89.2 fL (80.0-100.0) 02/07/22 21:46 MCH 30.7 pg (25.0-34.0) 02/07/22 21:46 MCHC 34.4 g/dL (32.0-36.0) 02/07/22 21:46 RDW Std Deviation 39.8 fL (36.4-46.3) 02/07/22 21:46 RDW Coeff of Johnna 12.2 % (11.5-14.5) 02/07/22 21:46 Plt Count 246 K/uL (130-400) 02/07/22 21:46 MPV 10.8 fL (9.4-12.3) 02/07/22 21:46 Immature Gran % (Auto) 0.4 % 02/07/22 21:46 Neut % (Auto) 56.4 % 02/07/22 21:46 Lymph % (Auto) 30.0 % 02/07/22 21:46 Walton % (Auto) 7.6 % 02/07/22 21:46 Eos % (Auto) 4.5 % 02/07/22 21:46 Baso % (Auto) 1.1 % 02/07/22 21:46 Neut # (Auto) 4.66 K/uL (1.4-6.5) 02/07/22 21:46 Lymph # (Auto) 2.48 K/uL (1.2-3.4) 02/07/22 21:46 Walton # (Auto) 0.63 K/uL (0.24-0.82) 02/07/22 21:46 Eos # (Auto) 0.37 K/uL (0-0.50) 02/07/22 21:46 Baso # (Auto) 0.09 K/uL (0-0.2) 02/07/22 21:46 Immature Gran # (Auto) 0.03 K/uL (0.00-0.02) H 02/07/22 21:46 PT 10.7 Seconds (9.0-12.0) 02/07/22 21:46 INR 1.0 (0.9-1.1) 02/07/22 21:46 APTT 26.5 Seconds (21.0-31.0) 02/07/22 21:46 PTT Ratio 1.0 02/07/22 21:46 POC Sodium 138 mmol/L (135-144) 02/07/22 21:51 Sodium 134 mmol/L (136-145) L 02/07/22 21:46 POC Potassium 3.2 mmol/L (3.3-5.0) L 02/07/22 21:51 Potassium 3.2 mmol/L (3.5-5.1) L 02/07/22 21:46 POC Chloride 99 mmol/L (101-112) L 02/07/22 21:51 Chloride 100 mmol/L (98-107) 02/07/22 21:46 Carbon Dioxide 29 mmol/L (21-32) 02/07/22 21:46 POC Total CO2 26 mmol/L (24-31) 02/07/22 21:51 Anion Gap 5 (3-11) 02/07/22 21:46 POC Anion Gap 18.0 mmol/L (16-25) 02/07/22 21:51 POC BUN 15 mg/dl (7-18) 02/07/22 21:51 BUN 16 mg/dl (6-23) 02/07/22 21:46 Creatinine 1.09 mg/dl (0.6-1.2) 02/07/22 21:46 POC Creatinine 1.1 mg/dl (0.6-1.3) 02/07/22 21:51 Est Cr Clr Drug Dosing 49.4 ml/min 02/07/22 21:46 Est GFR ( Amer) 69.5 ml/min 02/07/22 21:46 Est GFR (Non-Af Amer) 60.0 ml/min 02/07/22 21:46 BUN/Creatinine Ratio 14.7 (10-20) 02/07/22 21:46 Glucose 74 mg/dl (70-99(Fasting)) 02/07/22 21:46 POC Glucose 87 mg/dl (70-99) 02/07/22 21:43 POC Glucose (other) 78 mg/dl (70-99) 02/07/22 21:51 Calcium 8.5 mg/dl (8.5-10.1) 02/07/22 21:46 POC Ioniz Calcium Ashley 1.06 mmol/l (1.12-1.32) L 02/07/22 21:51 Magnesium 2.1 mg/dl (1.7-2.4) 02/07/22 21:46 Total Bilirubin 0.4 mg/dl (0.2-1.0) 02/07/22 21:46 AST 17 U/L (13-39) 02/07/22 21:46 ALT 15 U/L (7-52) 02/07/22 21:46 Alkaline Phosphatase 80 U/L (34-104) 02/07/22 21:46 Troponin I High Sens 3.1 pg/ml (0-14) 02/07/22 21:46 Total Protein 7.1 gm/dl (6.0-8.3) 02/07/22 21:46 Albumin 4.0 gm/dl (3.4-5.0) 02/07/22 21:46 Globulin 3.1 gm/dl (2.5-4.0) 02/07/22 21:46 Albumin/Globulin Ratio 1.3 (0.9-2) 02/07/22 21:46 HCG, Qual Negative (Negative) 02/07/22 21:46 SARS-CoV-2, RNA, NAAT NEGATIVE (NEGATIVE) 02/07/22 22:05 Blood Type A Positive 02/07/22 21:46 Antibody Screen NEGATIVE 02/07/22 21:46 Medications Administered Current Inpatient Medications Aspirin (No Aspirin Within 24hrs Of Thrombolytic-Stroke) 1 each PO UD CHRISTIANNE Stop: 02/08/22 22:29 Critical Care Time 40 minutes Supervising Physician Co-Signing Physician Notes Attending addendum: I have physically seen this patient, have supervised the medical residents activities, and agree with the H&P unless as otherwise noted. Assessment and Plan: Strokelike symptoms/stroke alert/status post thrombolytics in the ED tenecteplase- Admit to ICU with stroke status post tPA protocol day 1 order set Order hypercoagulability panel, consult PT/OT/speech/neurology N.p.o. until passes speech swallowing study or bedside evaluation Would hold estradiol upon resumption of oral medications unless absolutely indicated Check hemoglobin A1c, fasting lipid panel Consult industrial seamstress team Hypertriglyceridemia- Resume Zetia and cholestyramine when able to take p.o., and pending results of repeat fasting lipid panel Hypokalemia- Ongoing history check a renin and aldosterone level Replace with IV fluids Repeat laboratories in a.m. Remaining orders and notations as noted Resident Activity Tracking Resident Involvement: Resident Care Provided Care Provided: Adult Hospital Medicine (1) Asthma Asthma complication type: uncomplicated Asthma persistence: intermittent Asthma severity: mild Qualified Code(s): J45.20 - Mild intermittent asthma, uncomplicated
[2022-02-08] MEDS ORDERED: ALBUTEROL 0.5% NEB SOLN 2.5 MG/0.5 ML VIAL INH PRN (00:29)
[2022-02-08] MEDS ORDERED: POLYETHYLENE (MIRALAX) 17 GM PACK PO PRN (00:29)
[2022-02-08] MEDS ORDERED: ONDANSETRON INJ 2 MG/ML 2 ML VIAL IV PRN (00:29)
[2022-02-08] MEDS ORDERED: ACETAMINOPHEN 325 MG TAB PO PRN (00:29)
[2022-02-08] MEDS ORDERED: fentaNYL citrate 100 MCG/2 ML VIAL IV STA (01:12)
[2022-02-08] MEDS ORDERED: LORazepam 0.25 MG in SYRINGE 0.125 ML IV STA (01:16)
--- NOTE | 2022-02-08 01:17 | Critical Care Consultation ---
Date of Consultation February 08, 2022 Assessment & Plan (1) Stroke-like symptom: Impression: 46-year-old female presents to the ICU with strokelike symptoms and right-sided hemiparalysis, now s/p TNKase administration and undergoing 24-hour post thrombolytic protocol Neuro - CVA?Patient presents with strokelike symptoms. History of TIA but no longer taking aspirin. Also patient's mother had 2 strokes in her 50s -CT head, CTA head and neck unremarkable -TNKase administered 3 hours after symptoms at 20-25 -Follow-up MRI, follow-up echo -Follow-up lipid panel and A1c -Follow-up neurology recommendations with ASA, Plavix -Speech, PT, OT -Continue monitoring in ICU for 24 hours for post thrombolytic protocol, follow-up CT head at 24 hours Anxiety/depressioncontinue fluoxetine Glaucomacontinue Latanoprost eyedrops Cardiac - HTNhold losartan for now given contrast. Allow permissive hypertension Hypertriglyceridemiatriglycerides 580, cholesterol 234 -Continue ezetimibe, cholestyramine Respiratory - Lungs clear to auscultation. History of asthma. Albuterol as needed. Continuo us monitoring pulse ox GI - N.p.o. RENAL/LYTES - Creatinine within normal limits, monitor routine BMPs replete electrolytes as indicated - Rate I's and O's ENDO - No history of diabetes or thyroid disease. ICU hyperglycemic protocol HEME - H&H stable, monitor for signs of bleeding. Routine CBC ID - No indication for infectious process at this time LINES/IV ACCESS - Peripheral IVs DVT PROPHYLAXIS - SCDs, hold on anticoagulation given TNKase Thank you for allowing us to participate in the care of this patient. Please refer to my attending physician's documentation for any further recommendations. (2) Metabolic syndrome X: (3) Asthma: (4) Anxiety: (5) Chronic pain disorder: (6) Depression: (7) Migraine headache: (8) Hypertriglyceridemia: (9) Dyslipidemia (high LDL; low HDL): (10) NAFLD (nonalcoholic fatty liver disease): (11) HTN (hypertension): History of Present Illness Attending Physician: Christiano Corrigan MD History of Present Illness Patient is a 46-year-old female with past medical history of TIA, anxiety and depression, fibromyalgia, migraines, hypertriglycerides, HTN, asthma, and Crohn's disease. She presented to the emergency department with strokelike symptoms with right-sided weakness/numbness. Patient stated that she has felt like her balance was off for the past 2 days. She reported an abrupt frontal headache by symptoms of blurred vision, and numbness and paralysis in her right upper and lower extremity. At that point she called EMS. On arrival to the ER she was taken for CT head and CTA head and neck which were unremarkable. She was evaluated by telemetry neurology decision was made to proceed with TNKase which was administered at 5. Patient is now admitted to ICU for 24-hour monitoring protocol following thrombolytics administration. Allergies Allergy/AdvReac Type Severity Reaction Status Date / Time hydromorphone Allergy Intermediate hives, Verified 02/07/22 07:03 nausea, vomiting Iodinated Contrast Media Allergy Intermediate rash, Verified 02/07/22 07:03 vomiting magnesium sulfate Allergy Intermediate hives, Verified 02/07/22 07:03 nausea, vomiting ondansetron Allergy Intermediate n/v, hives Verified 02/07/22 07:03 diltiazem Allergy Unknown Unknown Verified 02/07/22 07:03 gemfibrozil [From Lopid] Allergy Unknown Unknown Verified 02/07/22 07:03 lisinopril Allergy Unknown Unknown Verified 02/07/22 07:03 phenytoin [From Dilantin] Allergy Unknown Unknown Verified 02/07/22 07:03 Seznygd-UDX-FoX Reductase AdvReac Intermediate Muscle pain Verified 02/07/22 07:03 Inhibitor [Ezreeha-Fck-Npt Reductase Inhibitor] Home Medications Medication Instructions Recorded Confirmed Type latanoprost 0.005 % eye drops 1 drops ophthalmic (eye) QPM #2.5 11/26/18 02/07/22 Rx mL compressor, for nebulizer #1 ea 03/11/19 02/07/22 Rx sumatriptan succinate 100 mg tablet 100 mg PO Q2H PRN Migraine Headache 05/01/19 02/07/22 History albuterol sulfate 2.5 mg/0.5 mL 2.5 mg (0.5 mL) inhalation Q6H PRN 09/12/20 02/07/22 Rx solution for nebulization shortness of breath or wheezing #30 ea blood-glucose meter (OneTouch #1 ea 09/13/20 02/07/22 Rx Ultra2 Meter kit) albuterol sulfate 90 mcg/actuation 2 puff inhalation Q6H PRN 03/20/21 02/07/22 Rx aerosol inhaler (Proventil HFA) shortness of breath or wheezing #6.7 grams cholecalciferol (vitamin D3) 50 50 mcg PO DAILY #90 tabs 08/14/21 02/07/22 Rx mcg (2,000 unit) tablet estradiol 1 mg tablet 1 mg PO DAILY #90 tabs 09/11/21 02/07/22 Rx fluticasone 100 mcg-salmeterol 50 1 inh inhalation BID #60 ea 10/16/21 02/07/22 Rx mcg/dose blistr powdr for inhalation (Wixela Inhub) OneTouch Ultra Test (blood sugar #100 ea 11/06/21 02/07/22 Rx diagnostic) promethazine 25 mg tablet 25 mg PO Q6H PRN nausea and 12/20/21 02/07/22 Rx vomiting #10 tabs cholestyramine-aspartame 4 gram 4 g PO BID #60 ea 02/07/22 02/07/22 Rx oral powder for susp in a packet (Cholestyramine Light) ezetimibe 10 mg tablet 10 mg PO DAILY #30 tabs 02/07/22 02/07/22 Rx famotidine 20 mg tablet (Heartburn 20 mg PO BID 02/07/22 02/07/22 History Relief (famotidine)) fluoxetine 10 mg capsule 10 mg PO DAILY 02/07/22 02/07/22 History losartan 50 mg tablet 50 mg PO DAILY #30 tabs 02/07/22 02/07/22 Rx potassium chloride 20 mEq 20 meq PO BID 02/07/22 02/07/22 History tablet,extended release trazodone 50 mg tablet 50 mg PO DAILY #30 tabs 02/07/22 02/07/22 Rx Patient History Medical History Anxiety Asthma Cervicalgia Depression Dyslipidemia (high LDL; low HDL) Elevated triglycerides with high cholesterol Eye movement abnormality Fibromyalgia Glaucoma Hearing loss HTN (hypertension) HTN, goal below 140/90 Hypertriglyceridemia Hypokalemia Kidney stone Metabolic syndrome X Migraine headache NAFLD (nonalcoholic fatty liver disease) Pre-diabetes Right sided weakness Vitamin D deficiency Surgical History History of section History of cholecystectomy History of dilation and curettage History of hysterectomy Family History Father Family history of anxiety disorder Colorectal cancer Coronary heart disease Diabetes Hypertension Kidney disease Prostate cancer Mother Family history of anxiety disorder Colorectal cancer Depression Family history of gallbladder disease Hypertension Kidney disease Breast cancer Grandfather (Paternal) Myocardial infarction Denies family history of Ovarian cancer Social History Smoking Status: Former smoker Second Hand Exposure: No; Hx Alcohol Use: No Hx Substance Use: No Preferred Language: Bulgarian Communication Ability: Effective Visual Impairment: No Limitations Hearing Ability: Normal Registered Dental Hygienist Required: No Beliefs That Will Affect Care: None marital status: Current Living Situation: Family current occupational status: disabled Other Information That Helps Us Care for You: No Feels Safe at Home: Yes Safety Concerns: Feels Safe At This Time Childhood Exposure to Second-Hand Smoke: No Diet Comment: regular caffeine: No (once in a while) during the past year weight has: remained stable Dental Care, Regularly: Yes Physical Activity Frequency: 3-4 Times per Week Physical Activity Frequency Comment: walking Seatbelt Use: always Sunscreen Use: Yes Assistive Devices: None Review of Systems Review of Systems: Patient is alert and oriented and appears comfortable at rest without hemodynamic instability or acute distress. She reports loss of sensation and inability to move the right upper extremity and has very limited range of motion to the right lower extremity. She also continues to have blurry vision. She reports headache 6 out of 10. She also reports nausea. Patient denies recent illness, fevers, dizziness, congestion, shortness of breath, cough, chest pain, palpitations, abdominal pain, diarrhea. Physical Exam Constitutional: cooperative; no acute distress Eyes: Is intact, PERRLA, no nystagmus ENMT: external ear and nose normal, oropharynx normal Neck: trachea midline, no thyromegaly Respiratory: normal respiratory effort, lungs clear to auscultation Cardiovascular: RRR, no murmur, no edema Heart Sounds: normal S1 and normal S2 Extremities: no edema Gastrointestinal (Abdomen): normal bowel sounds, soft, nontender, no hepatosplenomegaly Musculoskeletal: no cyanosis or clubbing, extremities motor strength 5/5 Skin: no rashes, warm and dry Neurologic: Right-sided facial palsy, no dysarthria. Right sided hemiparalysis Psychiatric: A+Ox3, euthymic affect Results & Data Results & Data ([facility]) Vital Signs (Past 12 Hours) Vital Signs Temp Pulse Pulse Resp BP BP Pulse Ox 02/08/22 00:45 73 13 97 02/08/22 00:42 160/94 H 02/08/22 00:42 72 16 97 02/08/22 00:31 72 16 97 02/08/22 00:22 76 14 99 02/08/22 00:22 166/84 H 02/08/22 00:20 78 7 L 02/08/22 00:50 37.3 C 71 16 166/84 H 97 02/08/22 00:40 02/08/22 00:11 74 13 132/90 97 02/07/22 23:56 76 17 127/87 96 02/07/22 23:41 79 18 145/83 H 97 02/07/22 23:26 80 16 142/85 H 95 02/07/22 23:23 81 19 136/88 96 02/07/22 23:11 84 17 136/88 97 02/07/22 22:56 82 17 138/85 95 02/07/22 22:30 89 20 151/82 H 97 02/07/22 22:20 89 14 143/87 H 97 02/07/22 22:19 89 18 161/96 H 98 02/07/22 22:10 92 H 14 160/99 H 97 02/07/22 22:00 91 H 15 155/130 H 97 02/07/22 21:54 89 14 168/82 H 98 02/07/22 21:59 97 02/07/22 21:59 36.9 C 97 H 18 174/101 H 97 O2 Del Method 02/08/22 00:45 02/08/22 00:42 02/08/22 00:42 02/08/22 00:31 02/08/22 00:22 02/08/22 00:22 02/08/22 00:20 02/08/22 00:50 Room Air 02/08/22 00:40 Room Air 02/08/22 00:11 Room Air 02/07/22 23:56 Room Air 02/07/22 23:41 Room Air 02/07/22 23:26 Room Air 02/07/22 23:23 Room Air 02/07/22 23:11 Room Air 02/07/22 22:56 Room Air 02/07/22 22:30 02/07/22 22:20 02/07/22 22:19 02/07/22 22:10 02/07/22 22:00 02/07/22 21:54 Room Air 02/07/22 21:59 Room Air 02/07/22 21:59 Room Air Coding Level of Care Code 66108 Inpt Consult Level 3 Diagnoses Stroke-like symptom R29.90 Metabolic syndrome X E88.81 Asthma J45.20 Asthma severity: mild Asthma persistence: intermittent Asthma complication type: uncomplicated Anxiety F41.9 Chronic pain disorder G89.4 Depression F32.9 Migraine headache G43.909 Hypertriglyceridemia E78.1 Dyslipidemia (high LDL; low HDL) E78.5 NAFLD (nonalcoholic fatty liver disease) K76.0 HTN (hypertension) I10 (1) Asthma Asthma severity: mild Asthma persistence: intermittent Asthma complication type: uncomplicated Qualified Code(s): J45.20 - Mild intermittent asthma, uncomplicated
[2022-02-08] MEDS ORDERED: NORMOSOL-R 1,000 ML IV SCH (03:45)
[2022-02-08 06:13] LABS: Hemoglobin 12.2 g/dl (12.0-16.0); Mean Corpuscular Hemoglobin 30.3 pg (25.0-34.0); Mean Corpuscular Hgb Conc 33.9 g/dL (32.0-36.0); Mean Corpuscular Volume 89.3 fL (80.0-100.0); Mean Platelet Volume 10.9 fL (9.4-12.3); Platelet Count 244 K/uL (130-400); RDW Coefficient of Variation 12.2 % (11.5-14.5); RDW Standard Deviation 39.9 fL (36.4-46.3); Red Blood Count 4.03 M/uL (3.93-5.22)
[2022-02-08 06:28] LABS: Prothrombin Time 10.7 Seconds (9.0-12.0)
[2022-02-08 06:40] LABS: BUN Creatinine Ratio 15.3 (10-20); Calcium 8.4 mg/dl (8.5-10.1); Creatinine Clr Calc Pharmacy 54.7 ml/min; Est GFR (African American) 79.1 ml/min; Est GFR (Non-African American) 68.2 ml/min; Potassium 3.1 mmol/L (3.5-5.1)
[2022-02-08 06:54] LABS: Estimated Average Glucose 114 mg/dl; Hemoglobin A1C 5.6 % (4.5-5.6)
--- NOTE | 2022-02-08 07:14 | CT Scan Report ---
CT angio head w con, CT angio neck with con, CT head/brain wo con CLINICAL HISTORY: Stroke Like Symptoms TECHNIQUE: Contiguous axial CT images of the head were acquired from the base of the skull to the joel osmani without intravenous contrast administration. CT angiography of the head and neck was performed f ollowing intravenous administration of iodinated contrast. Coronal and sagittal MIPS were obtained fr om the axial data set and were submitted for review. Automated dose lowering techniques and/or adjus tment according to patient size were utilized for this examination. All measurements were calculated based on NASCET criteria. CT DOSE: 1056.43 mGy.cm Comparison: None available at the time of this dictation. FINDINGS: CT head: There is no acute intracranial hemorrhage or evidence of acute territorial infarction. No sh ift of the midline structures, mass effect, or extra-axial abnormalities are shown. Lungs and soft tissues are unremarkable. CTA Neck: The left common carotid artery shares common origin with the innominate artery. There is n o significant atherosclerotic plaque in the aortic arch or the origins of the innominate, left common carotid, and left subclavian arteries. There is mild calcified atherosclerotic plaque at the bifur cation of the left common carotid artery without hemodynamically significant flow stenosis. There is no dissection present. The right vertebral artery is dominant. CTA Head: The anterior and posterior cerebral circulations are patent. No hemodynamically significan t stenosis, aneurysm, dissection, or arteriovenous malformation is shown. origin of the bilater al posterior cerebral arteries noted. IMPRESSION: 1. No acute intracranial hemorrhage, evidence of acute territorial infarction, or other acute intrac ranial disease process. 2. No occlusion, hemodynamically significant stenosis, or dissection in the major cervical arteries. 3. No occlusion, hemodynamically significant stenosis, aneurysm, dissection, or arteriovenous malfor mation in the major intracranial arteries. Assessment of stenosis of the internal carotid arteries is based on NASCET criteria. ACT 112: Negative or not required by law. Electronically signed by: Javan Perez M.D. 02/08/2022 7:13 AM
[2022-02-08] MEDS: POTASSIUM CHLORIDE / WTR 10 MEQ/100 ML PLCT IV SCH ×4 (07:50→11:42)
--- NOTE | 2022-02-08 08:43 | XRay Report ---
XR chest 1V portable CLINICAL HISTORY: Stroke Like Symptoms TECHNIQUE: Single frontal radiograph of the chest was obtained. Comparison: Comparison is made to chest radiograph 11/04/2015 FINDINGS: No lines and tubes are seen. The cardiomediastinal silhouette is normal. The lungs are clear. No evid ence of pleural effusion or pneumothorax. IMPRESSION: No acute chest disease. ACT 112: Negative or not required by law. Electronically signed by: Javan Perez M.D. 02/08/2022 8:42 AM
[2022-02-08] MEDS ORDERED: LOSARTAN POTASSIUM 50 MG TAB PO SCH (09:00)
--- NOTE | 2022-02-08 09:47 | Magnetic Resonance Report ---
MR brain wo con CLINICAL HISTORY: CVA TECHNIQUE: Multiplanar and multisequence MR images of the brain were obtained without intravenous con trast. Comparison: Comparison is made to CT head 02/07/2022 FINDINGS: No abnormal restricted diffusion is identified. The white matter is unremarkable. The ventricular sys tem is normal in appearance. No mass is seen. There is no mass effect or midline shift. There is no e vidence of acute intraparenchymal hemorrhage. No extra axial fluid collections are seen. The corpus c allosum, pituitary gland, and cerebellar tonsils appear grossly unremarkable. Flow voids of the major intracranial arterial vessels are identified. The imaged portions of the para nasal sinuses, mastoid air cells, and orbits are unremarkable. IMPRESSION: No acute abnormalities. ACT 112: Negative or not required by law. Electronically signed by: Javan Perez M.D. 02/08/2022 9:45 AM
[2022-02-08] MEDS: FLUTICASONE/VILANTEROL 100/25MCG 14 PUFFS/INHALER INH SCH (10:16)
[2022-02-08] MEDS: CHOLECALCIFEROL 1,000 UNITS 25 MCG TAB PO SCH (10:16)
[2022-02-08] MEDS: FLUoxetine HCL 10 MG CAP PO SCH (10:17)
[2022-02-08] MEDS: EZETIMIBE 10 MG TABLET PO SCH (10:17)
[2022-02-08] MEDS: traZODone HCL 50 MG TAB PO SCH (10:17)
[2022-02-08] MEDS: FAMOTIDINE 20 MG TAB PO SCH ×2 (10:17→20:58)
[2022-02-08] MEDS: CHOLESTYRAMINE LIGHT 4 GM PKT PO SCH ×2 (10:17→20:59)
[2022-02-08] MEDS: POTASSIUM CHLORIDE CRTAB 20 MEQ TABCR PO SCH ×2 (10:19→20:58)
--- NOTE | 2022-02-08 13:32 | XCELERA ---
[id number]
--- NOTE | 2022-02-08 13:44 | Progress Notes ---
DATE OF SERVICE: 02/08/2022. REASON FOR CONSULTATION: Stroke. SUBJECTIVE: The patient is a 46-year-old right-handed female with a past medical history of a TIA, anxiety, depression, migraine, hypertriglyceridemia, hypertension, dysmetabolic syndrome, asthma, chronic pain syndrome, Crohn's disease, fibromyalgia. On this background, the patient felt vaguely unwell and vaguely unsteady for several days prior to admission. She also reported fatigue. On the evening of admission, she felt a sharp pain deep in the midline head, developed blurred vision or a tunnel type vision and then noticed tingling and then numbness of her right face, arm, and leg with associated weakness, some difficulty with speech with dysarthria. There was nausea, but no vomiting and no photophobia or phonophobia. The patient received tenecteplase within 3 hours of onset of symptoms. Her CT of the head noncontrast was unremarkable. CTA of head and neck showed no significant stenosis. Chest x-ray was normal. The patient reports that she is about 25% better today. The headache has resolved. Four or five years ago, she was told that she had a transient ischemic attack. The symptoms were somewhat similar and that she had numbness, tingling, weakness, speech trouble with headache and some change in vision. Although she was told she had "TIA" and did not have a stroke, she used a walker for 4 to 6 months thereafter. She was placed on antiplatelet therapy, but stopped antiplatelet therapy some time ago because she did not feel she needed it. She has lost 30 pounds in the last 3 to 4 months for unclear reasons. She does have Crohn's, but that does not seem to be currently contributing to that. She intermittently has chest pain, but no palpitations. She rarely has a throbbing headache and denies that she has ever had a throbbing headache with other neurologic symptoms. No recent history of head trauma, chiropractic manipulation. No fevers, chills, sweats. No medical or dental procedures. None of her medicines are new or changed in dose. PAST MEDICAL HISTORY: As above including prediabetes, glaucoma. PAST SURGICAL HISTORY: , cholecystectomy, total hysterectomy, D and C, bilateral cataract surgery. FAMILY HISTORY: Anxiety, colorectal cancer, coronary artery disease, diabetes, hypertension, kidney disease, prostate cancer. She indicates that her father had a pacer in his late 40s. Grandfather and mother had migraine. SOCIAL HISTORY: Former smoker. Does not drink alcohol or use drugs. She is on disability for Crohn's disease. REVIEW OF SYSTEMS: Her review of systems is notable for the above. ALLERGIES: HYDROMORPHONE, IODINATED CONTRAST MEDIA, MAGNESIUM, ZOFRAN, DILTIAZEM, GEMFIBROZIL, LISINOPRIL, DILANTIN, AND STATINS. HOME MEDICATIONS: Latanoprost, compressor for nebulizer, Imitrex 100, albuterol, vitamin D3, Wixela, promethazine, cholestyramine, ezetimibe, famotidine, fluoxetine, losartan, potassium, and trazodone. LABORATORY DATA: Database: White count, H and H and platelet count are normal. Potassium was 2.9 and then 3.2, glucose 87. Ionized calcium 1.06, total calcium normal, magnesium normal. Triglycerides 580, total cholesterol 234. LDL could not be calculated due to elevated triglycerides. HCG negative. EKG: Sinus rhythm, possible left atrial enlargement, nonspecific ST-T wave abnormality, prolonged QT. Echo has not yet been read. MRI of the brain is unremarkable. No acute abnormalities. VITAL SIGNS: Blood pressure 128/104, pulse 78, respirations 17, temperature 36.6, satting 95% on room air. OBJECTIVE: The patient is awake and alert. Speech maybe mildly dysarthric. Language is unremarkable. Naming, repetition and 3-step commands are normal. There are no carotid bruits, no heart murmurs. Heart is regular rate and rhythm. Abdomen is soft and nontender. No calf swelling or tenderness is noted and posterior tibial pulses are intact. Pupils are equal, round and reactive to light. I had difficulty visualizing the optic nerves, but saleem were full and motility was normal. The patient makes a partial smile with the right face, which is variable and she variably elevates the right brow. Left palpebral fissure is mildly wider than the right. There is decreased facial sensation to light touch and temperature. She splits a tuning fork on the forehead. Tongue is midline. Gag is intact bilaterally. Motor at best in the right upper extremity is about 3 and perhaps 2/5 more proximally. Left upper and left lower full. The patient does not allow the hand to drop onto her face when elevated above her face. 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 When I asked her to do rapid alternating movements, she can barely tap her fingers. Right lower extremity of best 3, likely 3- with a positive Bui sign. Left hemianesthesia to all modalities, light touch and temperature. Unable to perform [id number] on the right or [id number] on the right, normal on the left. IMPRESSION AND PLAN: Most likely this is a complicated migraine, s/p TPA. There are nonphysiologic features on exam. I would complete a vascular workup to followup CT as recommended by the protocol and beginning antiplatelet therapy when able, although at present, I would use aspirin monotherapy rather than dual antiplatelet therapy because my index of suspicion that the transient ischemia is low. I also suspect her prior events were migrainous as she was told she had a transient ischemic attack, but had neurologic deficit for 4 to 6 months. I recommend a hypercoagulable state workup echo. LDL goal 70 or lessThe patient should have a Zio as an outpatient. At present, I do not feel strongly about placing her on something prophylactic for migraine, although we may want to try some riboflavin. I would consider discontinuation of estradiol because of the complicated nature of this headache. I would recommend against the use of triptans such as sumatriptan. The [facility] neurology group will be taking over the service tomorrow. Job ID: [id number]
--- NOTE | 2022-02-08 14:55 | Hospitalist Progress Note ---
Date of Service February 08, 2022 Assessment & Plan (1) Stroke-like symptom: Plan: patient presented to the hospital with acute right sided weakness, blurred vision, tingling and then numbness of her right face, arm, and leg with associated weakness, some difficulty with speech with dysarthria. Received Tenecteplase and admitted to ICU for monitoring However, CT head, MRI brain, CT angio head and neck did not suggest stroke or large vessel occlusion The reason for her weakness could be complicated migraines has been evaluated by neurology, 2 d ECHO pending will continue ASA Hypercoagulation work up pending Appreciate neurology recs (2) HTN (hypertension): Plan: BP under good control On Losartan (3) Dyslipidemia (high LDL; low HDL): Plan: On Ezetimibe (4) Chronic pain disorder: Plan: patient has a pain agreement in place (5) Migraine headache: Plan full code heparin for DVT Admission and Anticipated Discharge Date Admission Date: February 07, 2022 Subjective patient seen and examined, said her right sided weakness is marginally better Review of Systems Review of Systems: All systems reviewed are negative, apart from the ones contained in the history. Physical Exam Physical Exam: The patient is awake, alert and oriented 3, well developed and well nourished, normocephalic and atraumatic, lying in bed and in no acute distress. HEENT--PERRL, EOMI, mucous membranes and oropharynx mildly dry Neck--supple. No JVD. No bruits. Thyroid normal, trachea midline, no adenopathy. Heart--normal S1 and S2. No murmurs, rubs or gallops. Lungs--clear bilaterally, no respiratory distress, no accessory muscle use. Abdomen--normal bowel sounds and soft. Mild epigastric and left sided abdominal pain Extremities--no cyanosis or clubbing. No edema. Dermatologic--normal skin turgor, normal color, no abnormal lymph nodes, no rash. Neurologic--right hemiparesis Rheumatologic--normal range of motion. Psychiatric--normal affect. Results & Data Results & Data ([facility]) Vital Signs (Past 12 Hours) Vital Signs Temp Pulse Pulse Pulse Resp BP BP 02/08/22 13:25 98.2 F 81 22 141/96 H 02/08/22 10:25 97.9 F 84 21 153/88 H 02/08/22 12:25 97.9 F 78 17 128/104 H 02/08/22 11:25 97.9 F 89 21 128/104 H 02/08/22 10:34 97.9 F 74 15 153/88 H 02/08/22 09:25 97.9 F 93 H 15 131/68 02/08/22 08:25 97.9 F 71 19 112/77 02/08/22 08:00 68 02/08/22 07:25 97.9 F 66 11 L 119/78 02/08/22 06:26 65 13 118/70 02/08/22 05:55 70 12 122/78 02/08/22 05:56 66 14 122/78 02/08/22 05:25 97.9 F 68 12 117/72 02/08/22 05:25 70 12 117/72 02/08/22 04:55 67 12 136/91 02/08/22 04:55 67 12 136/91 02/08/22 04:25 73 14 121/80 02/08/22 03:55 75 12 114/76 02/08/22 03:30 74 17 02/08/22 03:30 110/76 02/08/22 03:26 72 16 02/08/22 03:26 118/68 02/08/22 03:15 71 11 L 02/08/22 03:00 74 11 L 02/08/22 03:00 103/67 02/08/22 03:25 71 15 118/68 02/08/22 02:55 75 12 103/67 Pulse Ox O2 Del Method 02/08/22 13:25 97 02/08/22 10:25 97 02/08/22 12:25 95 02/08/22 11:25 96 02/08/22 10:34 94 02/08/22 09:25 97 02/08/22 08:25 96 02/08/22 08:00 02/08/22 07:25 95 Room Air 02/08/22 06:26 94 Room Air 02/08/22 05:55 94 Room Air 02/08/22 05:56 95 Room Air 02/08/22 05:25 95 Room Air 02/08/22 05:25 95 Room Air 02/08/22 04:55 96 Room Air 02/08/22 04:55 Room Air 02/08/22 04:25 96 Room Air 02/08/22 03:55 98 Room Air 02/08/22 03:30 94 02/08/22 03:30 02/08/22 03:26 95 02/08/22 03:26 02/08/22 03:15 95 02/08/22 03:00 92 02/08/22 03:00 02/08/22 03:25 95 Room Air 02/08/22 02:55 93 Room Air PG Care Time/CCT Total # of Minutes Spent Total Time Spent with Patient: Total time spent is greater than 50% in coordination of care (as documented) at patient's floor/unit and/or counseling patient: Coding Level of Care Code 08772 Subseq Hosp Care Lvl 2 Diagnoses Stroke-like symptom R29.90 HTN (hypertension) I10 Dyslipidemia (high LDL; low HDL) E78.5 Chronic pain disorder G89.4 Migraine headache G43.909 Time Spent (min) 35
[2022-02-08] MEDS ORDERED: LATANOPROST 0.005% OP SOLN 2.5 ML BTL OP SCH (21:00)
--- NOTE | 2022-02-08 21:16 | Electrocardiogram Report ---
Test Reason : Blood Pressure : / mmHG Vent. Rate : 090 BPM Atrial Rate : 090 BPM P-R Int : 136 ms QRS Dur : 076 ms QT Int : 394 ms P-R-T Axes : 079 055 055 degrees QTc Int : 481 ms Normal sinus rhythm Possible Left atrial enlargement Nonspecific ST and T wave abnormality Prolonged QT Abnormal ECG When compared with ECG of 04-NOV-2015 18:47, No significant change Confirmed by Gold Dias ([id number]) on 02/08/2022 9:16:19 PM Referred By: REFERRED SELF Confirmed By:Gold Dias
--- NOTE | 2022-02-08 23:17 | Billing Data ---
Date of Service February 08, 2022 Coding Level of Care Code Critical Care mins
--- NOTE | 2022-02-09 07:24 | CT Scan Report ---
HEAD CT NONCONTRAST CT DOSE: 691.05 mGy.cm HISTORY: 24 hour post thrombolytic for CVA- evl for bleed TECHNIQUE: Multiaxial CT images of the head were performed without the use of intravenous contrast. A utomated exposure control was utilized for this study. A dose lowering technique was utilized adheri ng to the principles of ALARA. Comparison: Head CT 02/07/2022. Brain MRI 02/08/2022. Findings: The paranasal sinuses and mastoid air cells are clear. The calvarium and skull base are int act. The ventricles and sulci are within normal limits. There is no mass, hematoma, midline shift, or acute infarct. Impression: No acute intracranial abnormality. ACT 112: Negative or not required by law. Electronically signed by: Mauricio Durham M.D. 02/09/2022 7:23 AM
[2022-02-09] MEDS: POTASSIUM CHLORIDE CRTAB 20 MEQ TABCR PO SCH (08:15)
[2022-02-09] MEDS: FLUoxetine HCL 10 MG CAP PO SCH (08:18)
[2022-02-09] MEDS: FAMOTIDINE 20 MG TAB PO SCH (08:18)
[2022-02-09] MEDS: FLUTICASONE/VILANTEROL 100/25MCG 14 PUFFS/INHALER INH SCH (08:18)
[2022-02-09] MEDS: CHOLECALCIFEROL 1,000 UNITS 25 MCG TAB PO SCH (08:19)
[2022-02-09] MEDS: traZODone HCL 50 MG TAB PO SCH (08:19)
[2022-02-09] MEDS: EZETIMIBE 10 MG TABLET PO SCH (08:20)
--- NOTE | 2022-02-09 09:48 | Critical Care Progress Note ---
Date of Service February 09, 2022 Assessment & Plan (1) Stroke-like symptom: Plan: Impression: 46-year-old female presents to the ICU with strokelike symptoms and right-sided hemiparalysis, now s/p TNKase administration and undergoing 24-hour post thrombolytic protocol Neuro - Complex migraine -History of TIA but no longer taking aspirin. Also patient's mother had 2 strokes in her 50s -CT head, CTA head and neck unremarkable -TNKase administered 3 hours after symptoms -MRI reviewed, reviewed echo -Start 81 mg aspirin -Speech, PT, OT Anxiety/depressioncontinue fluoxetine Glaucomacontinue Latanoprost eyedrops Cardiac - HTNhold losartan for now given contrast. Allow permissive hypertension Hypertriglyceridemiatriglycerides 580, cholesterol 234 -Continue ezetimibe, cholestyramine Respiratory - Lungs clear to auscultation. History of asthma. Albuterol as needed. Continuous monitoring pulse ox GI - N.p.o. RENAL/LYTES - Creatinine within normal limits, monitor routine BMPs replete electrolytes as indicated - Rate I's and O's ENDO - No history of diabetes or thyroid disease. ICU hyperglycemic protocol HEME - H&H stable, monitor for signs of bleeding. Routine CBC ID - No indication for infectious process at this time LINES/IV ACCESS - Peripheral IVs DVT PROPHYLAXIS - SCDs, hold on anticoagulation given TNKase Stable for downgrade out of ICU (2) Metabolic syndrome X: (3) Asthma: (4) Anxiety: (5) Chronic pain disorder: (6) Depression: (7) Migraine headache: (8) Hypertriglyceridemia: (9) Dyslipidemia (high LDL; low HDL): (10) NAFLD (nonalcoholic fatty liver disease): (11) HTN (hypertension): Admission and Anticipated Discharge Date Admission Date: February 07, 2022 Subjective no overnight events Results & Data Results & Data ([facility]) Vital Signs (Past 12 Hours) Vital Signs Temp Pulse Pulse Resp BP BP Pulse Ox 02/09/22 09:00 83 23 99 02/09/22 09:00 129/81 02/09/22 08:00 70 19 95 02/09/22 08:00 138/82 02/09/22 07:00 74 14 95 02/09/22 07:00 136/78 02/09/22 06:00 97 H 22 130/77 96 02/09/22 05:00 79 21 96 02/09/22 05:00 140/88 02/09/22 04:00 76 95 02/09/22 04:00 119/62 02/09/22 03:00 72 12 95 02/09/22 03:00 135/64 02/09/22 02:45 79 16 95 02/09/22 02:30 89 25 H 94 02/09/22 02:15 81 17 91 02/09/22 02:00 80 12 93 02/09/22 02:00 109/70 02/09/22 01:45 84 19 94 02/09/22 01:30 83 12 94 02/09/22 01:15 82 14 95 02/09/22 01:06 132/71 02/09/22 01:06 89 15 97 02/09/22 01:00 79 12 95 02/09/22 00:45 72 16 96 02/09/22 00:30 86 16 97 02/09/22 00:15 91 H 17 99 02/09/22 00:00 83 14 97 02/09/22 00:00 151/92 H 02/08/22 23:39 141/89 H 02/08/22 23:39 86 17 97 02/08/22 23:00 78 21 96 02/08/22 23:00 150/92 H 02/09/22 00:10 76 02/08/22 22:25 36.8 C 90 18 150/87 H 97 02/08/22 22:26 36.8 C 90 18 150/87 H 97 O2 Del Method 02/09/22 09:00 Room Air 02/09/22 09:00 02/09/22 08:00 02/09/22 08:00 02/09/22 07:00 02/09/22 07:00 02/09/22 06:00 02/09/22 05:00 02/09/22 05:00 02/09/22 04:00 02/09/22 04:00 02/09/22 03:00 02/09/22 03:00 02/09/22 02:45 02/09/22 02:30 02/09/22 02:15 02/09/22 02:00 02/09/22 02:00 02/09/22 01:45 02/09/22 01:30 02/09/22 01:15 02/09/22 01:06 02/09/22 01:06 02/09/22 01:00 02/09/22 00:45 02/09/22 00:30 02/09/22 00:15 02/09/22 00:00 02/09/22 00:00 02/08/22 23:39 02/08/22 23:39 02/08/22 23:00 02/08/22 23:00 02/09/22 00:10 02/08/22 22:25 02/08/22 22:26 Critical Care Results & Data Vital Signs (Past 12 Hours) Vital Signs Pulse Resp BP Pulse Ox O2 Del Method 02/09/22 11:00 78 22 02/09/22 10:00 73 14 96 02/09/22 10:00 119/59 L 02/09/22 09:00 83 23 99 Room Air 02/09/22 09:00 129/81 02/09/22 08:00 70 19 95 02/09/22 08:00 138/82 02/09/22 07:00 74 14 95 02/09/22 07:00 136/78 02/09/22 06:00 97 H 22 130/77 96 02/09/22 05:00 79 21 96 02/09/22 05:00 140/88 02/09/22 04:00 76 95 02/09/22 04:00 119/62 02/09/22 03:00 72 12 95 02/09/22 03:00 135/64 02/09/22 02:45 79 16 95 02/09/22 02:30 89 25 H 94 02/09/22 02:15 81 17 91 Lab & Micro Results (Past 24 Hours) No Data to Display No Data to Display No Data to Display Diagnostic Findings (Past 24 Hours) Head CT 02/08/22 22:[address] DOSE: 691.05 mGy.cm HISTORY: 24 hour post thrombolytic for CVA- evl for bleed TECHNIQUE: Multiaxial CT images of the head were performed without the use of intravenous contrast. Automated exposure control was utilized for this study. A dose lowering technique was utilized adhering to the principles of ALARA. Comparison: Head CT 02/07/2022. Brain MRI 02/08/2022. Findings: The paranasal sinuses and mastoid air cells are clear. The calvarium and skull base are intact. The ventricles and sulci are within normal limits. There is no mass, hematoma, midline shift, or acute infarct. Impression: No acute intracranial abnormality. ACT 112: Negative or not required by law. Electronically signed by: Mauricio Durham M.D. 02/09/2022 7:23 AM I & O Totals 24 Hours 02/08/22 02/09/22 02/10/22 06:59 06:59 06:59 Intake Total 0 / 0 2960.000 / 2960.000 500 / 500 Output Total 0 / 0 551 / 551 800 / 800 Balance 0 / 0 2409.000 / 2409.000 -300 / -300 Cumulative 02/07/22 21:06 thru 02/09/22 13:48 Intake Total 3460.000 Output Total 1351 Balance 2109.000 RT Ventilator Mngmt (Last Documented) Ventilator Ordered Settings Respiratory Rate 22 02/09/22 11:00 Ventilator - PT Measurements Respiratory Rate 22 Coding Level of Care Code 76191 Subseq Hosp Care Lvl 1 Diagnoses Stroke-like symptom R29.90 Metabolic syndrome X E88.81 Asthma J45.20 Asthma complication type: uncomplicated Asthma persistence: intermittent Asthma severity: mild Anxiety F41.9 Chronic pain disorder G89.4 Depression F32.9 Migraine headache G43.909 Hypertriglyceridemia E78.1 Dyslipidemia (high LDL; low HDL) E78.5 NAFLD (nonalcoholic fatty liver disease) K76.0 HTN (hypertension) I10 (1) Asthma Asthma complication type: uncomplicated Asthma persistence: intermittent Asthma severity: mild Qualified Code(s): J45.20 - Mild intermittent asthma, uncomplicated
[2022-02-09] MEDS ORDERED: ASPIRIN 81 MG ECTAB PO SCH (10:00)
[2022-02-09] MEDS: CHOLESTYRAMINE LIGHT 4 GM PKT PO SCH (10:47)
--- NOTE | 2022-02-09 11:42 | Hospitalist Progress Note ---
Date of Service February 09, 2022 Assessment & Plan (1) Stroke-like symptom: Plan: patient presented to the hospital with acute right sided weakness,blurred vision, tingling and then numbness of her right face, arm, and leg with associated weakness, some difficulty with speech with dysarthria. Received Tenecteplase and admitted to ICU for monitoring However, CT head, MRI brain, CT angio head and neck did not suggest stroke or large vessel occlusion The reason for her weakness could be complicated migraines has been evaluated by neurology, 2 d ECHO was essentially normal, EF55-60%, no wma will continue ASA Hypercoagulation work up pending Appreciate neurology recs (2) Migraine headache: Plan: patient has a hx of migraines and what she thought was stroke Most likely complicated migraines MRI did not show any evidence of new or previous stroke (3) Pre-diabetes: (4) Asthma: (5) Anxiety: (6) Chronic pain disorder: (7) Metabolic syndrome X: (8) Hypertriglyceridemia: (9) HTN, goal below 140/90: (10) Fibromyalgia: (11) IBS (irritable bowel syndrome): (12) Hypokalemia: Plan Awaiting PT eval, patient on bed rest till 2300 today after TPA Admission and Anticipated Discharge Date Admission Date: February 07, 2022 Subjective patient seen and examined, said her right sided weakness is marginally better Review of Systems Review of Systems: All systems reviewed are negative, apart from the ones contained in the history. Physical Exam Physical Exam: The patient is awake, alert and oriented 3, well developed and well nourished, normocephalic and atraumatic, lying in bed and in no acute distress. HEENT--PERRL, EOMI, mucous membranes and oropharynx mildly dry Neck--supple. No JVD. No bruits. Thyroid normal, trachea midline, no adenopathy. Heart--normal S1 and S2. No murmurs, rubs or gallops. Lungs--clear bilaterally, no respiratory distress, no accessory muscle use. Abdomen--normal bowel sounds and soft. Mild epigastric and left sided abdominal pain Extremities--no cyanosis or clubbing. No edema. Dermatologic--normal skin turgor, normal color, no abnormal lymph nodes, no rash. Neurologic--right hemiparesis Rheumatologic--normal range of motion. Psychiatric--normal affect. Results & Data Results & Data ([facility]) Vital Signs (Past 12 Hours) Vital Signs Pulse Resp BP Pulse Ox O2 Del Method 02/09/22 09:00 83 23 99 Room Air 02/09/22 09:00 129/81 02/09/22 08:00 70 19 95 02/09/22 08:00 138/82 02/09/22 07:00 74 14 95 02/09/22 07:00 136/78 02/09/22 06:00 97 H 22 130/77 96 02/09/22 05:00 79 21 96 02/09/22 05:00 140/88 02/09/22 04:00 76 95 02/09/22 04:00 119/62 02/09/22 03:00 72 12 95 02/09/22 03:00 135/64 02/09/22 02:45 79 16 95 02/09/22 02:30 89 25 H 94 02/09/22 02:15 81 17 91 02/09/22 02:00 80 12 93 02/09/22 02:00 109/70 02/09/22 01:45 84 19 94 02/09/22 01:30 83 12 94 02/09/22 01:15 82 14 95 02/09/22 01:06 132/71 02/09/22 01:06 89 15 97 02/09/22 01:00 79 12 95 02/09/22 00:45 72 16 96 02/09/22 00:30 86 16 97 02/09/22 00:15 91 H 17 99 02/09/22 00:00 83 14 97 02/09/22 00:00 151/92 H 02/09/22 00:10 76 PG Care Time/CCT Total # of Minutes Spent Total Time Spent with Patient: Total time spent is greater than 50% in coordination of care (as documented) at patient's floor/unit and/or counseling patient: Coding Level of Care Code 27523 Subseq Hosp Care Lvl 2 Diagnoses Stroke-like symptom R29.90 Migraine headache G43.909 Pre-diabetes R73.03 Asthma J45.20 Asthma severity: mild Asthma persistence: intermittent Asthma complication type: uncomplicated Anxiety F41.9 Chronic pain disorder G89.4 Metabolic syndrome X E88.81 Hypertriglyceridemia E78.1 HTN, goal below 140/90 I10 Fibromyalgia M79.7 IBS (irritable bowel syndrome) K58.9 Hypokalemia E87.6 Time Spent (min) 35 (1) Asthma Asthma severity: mild Asthma persistence: intermittent Asthma complication type: uncomplicated Qualified Code(s): J45.20 - Mild intermittent asthma, uncomplicated
--- NOTE | 2022-02-09 16:04 | Discharge Summary ---
Date of Service February 09, 2022 Admission HPI Per Admitting Provider 46yo Female PMH Hx TIA Anxiety Depression Migraines Hypertriglyceridemia HTN metabolic syndrome asthma chronic pain syndrome fibromyalgia crohn's disease admitted for stroke like symptoms. She received Tenecteplase in ED, stat read of CT head neck negative for acute findings. Patient complain of feeling 'off' since this saturday, states her balance has been off. Starting yesterday she describes a headache across the front and top of her head, states it 'felt like a lightning strike'. She states tonight around 8:15 the pain became bad, states her vision became blurry, felt more unstable and forgetful, she could not feel or move her right side of body. Patient grijalva not recall any SOB nausea vomiting fever. Patient states she had high triglycerides being managed by her PCP. She had similar symptoms 5 years ago was diagnosed with a TIA started on ASA, however was later taken off ASA per her provider. She has previously gone through a course of PT. Patient has history migraine has not had one for several years, states this felt different from a migraine. Patient states her mom also had strokes in her 50's Principal Diagnosis complicated migraine Discharge Exam The patient is awake, alert and oriented 3, well developed and well nourished, normocephalic and atraumatic, lying in bed and in no acute distress. HEENT--PERRL, EOMI, mucous membranes and oropharynx mildly dry Neck--supple. No JVD. No bruits. Thyroid normal, trachea midline, no adenopathy. Heart--normal S1 and S2. No murmurs, rubs or gallops. Lungs--clear bilaterally, no respiratory distress, no accessory muscle use. Abdomen--normal bowel sounds and soft. Mild epigastric and left sided abdominal pain Extremities--no cyanosis or clubbing. No edema. Dermatologic--normal skin turgor, normal color, no abnormal lymph nodes, no rash. Neurologic--right hemiparesis Rheumatologic--normal range of motion. Psychiatric--normal affect. Discharge Data Allergies Allergy/AdvReac Type Severity Reaction Status Date / Time hydromorphone Allergy Intermediate hives, Verified 02/07/22 07:03 nausea, vomiting Iodinated Contrast Media Allergy Intermediate rash, Verified 02/07/22 07:03 vomiting magnesium sulfate Allergy Intermediate hives, Verified 02/07/22 07:03 nausea, vomiting ondansetron Allergy Intermediate n/v, hives Verified 02/07/22 07:03 diltiazem Allergy Unknown Unknown Verified 02/07/22 07:03 gemfibrozil [From Lopid] Allergy Unknown Unknown Verified 02/07/22 07:03 lisinopril Allergy Unknown Unknown Verified 02/07/22 07:03 phenytoin [From Dilantin] Allergy Unknown Unknown Verified 02/07/22 07:03 Iabmcds-CFI-ElW Reductase AdvReac Intermediate Muscle pain Verified 02/07/22 07:03 Inhibitor [Xzsnuxi-Vex-Whv Reductase Inhibitor] Consultations 02/07/22 23:12 ED Decision to Admit Stat 02/07/22 23:43 Consult Field Associate Stat 02/08/22 00:29 Consult Neurology Routine Ordered Studies 02/07/22 21:24 CT angio head w con Urgent CT angio neck with con Urgent CT head/brain wo con Urgent 02/08/22 01:02 MRI Brain [MR brain wo con] Stat 02/08/22 22:30 CT head/brain wo con Routine Hospital Course (1) Stroke-like symptom: patient presented to the hospital with acute right sided weakness,blurred vision, tingling and then numbness of her right face, arm, and leg with associated weakness, some difficulty with speech with dysarthria. Received Tenecteplase and admitted to ICU for monitoring However, CT head, MRI brain, CT angio head and neck did not suggest stroke or large vessel occlusion The reason for her weakness could be complicated migraines has been evaluated by neurology, 2 d ECHO was essentially normal, EF55-60%, no wma will continue ASA 81mg daily Hypercoagulation work up pending Appreciate neurology recs (2) Migraine headache: patient has a hx of migraines and what she thought was stroke Most likely complicated migraines MRI did not show any evidence of new or previous stroke (3) Pre-diabetes: (4) Asthma: (5) Anxiety: (6) Chronic pain disorder: (7) Metabolic syndrome X: (8) Hypertriglyceridemia: (9) HTN, goal below 140/90: (10) Fibromyalgia: (11) IBS (irritable bowel syndrome): (12) Hypokalemia: Plan home with outpatient PT Total Time Total Time Spent Total Time Spent (In Minutes): 35 Discharge Plan Discharge Items Patient Disposition: Home - Self-Care Reason For Visit: STROKE LIKE SYMPTOMS Discharge Diagnosis: complicated migraine Activity: Resume your previous activity Non-emergency contact: Primary Care Provider and Neurologist Call non-emergency contact if: you have any medication questions Follow-up/Referrals: Jas Galeas MD [Primary Care Provider] - Diet: Regular Addtl Attending Provider Instructions: please make appointment to follow up with your PCP and Neurologist Pending Studies at Discharge: No Stand-Alone Forms: My [facility] [employer], Smoking Cessation Medications and DC Order Prescriptions: New aspirin 81 mg Tablet,Delayed Release (Dr/Ec) 81 mg PO QAM 30 Days Qty: 30 0RF Continued albuterol sulfate 2.5 mg/0.5 mL solution for nebulization 2.5 mg INH Q6H PRN (Reason: shortness of breath or wheezing) Qty: 30 3RF (DME) blood-glucose meter [OneTouch Ultra2 Meter] Kit See Dose Instructions .ROUTE .MEDSUPPLY Qty: 1 0RF Rx Instructions: As directed cholecalciferol (vitamin D3) 50 mcg (2,000 unit) tablet 50 mcg PO DAILY Qty: 90 3RF fluticasone propion-salmeterol [Wixela Inhub] 100-50 mcg/dose blister with device 1 inh inhalation BID Qty: 60 5RF (DME) OneTouch Ultra Test Strip See Rx Instructions .Route Qty: 100 11RF Rx Instructions: TEST 1-3 TIMES DAILY. DX: R73.03 promethazine 25 mg tablet 25 mg PO Q6H PRN (Reason: nausea and vomiting) Qty: 10 3RF ezetimibe 10 mg tablet 10 mg PO DAILY Qty: 30 2RF losartan 50 mg tablet 50 mg PO DAILY Qty: 30 2RF (DME) compressor, for nebulizer device See Dose Instructions .ROUTE .MEDSUPPLY Qty: 1 0RF Dose Instruction: As directed Rx Instructions: As directed albuterol sulfate [Proventil HFA] 90 mcg/actuation HFA aerosol inhaler 2 puff INH Q6H PRN (Reason: shortness of breath or wheezing) Qty: 6.7 5RF sumatriptan succinate 100 mg tablet 100 mg PO Q2H PRN (Reason: Migraine Headache) Rx Instructions: Take 1 tablet at onset of headache; may repeat in 2 hrs if needed. Max 200mg/day. latanoprost 0.005 % drops 1 drops OP QPM Qty: 2.5 3RF trazodone 50 mg tablet 50 mg PO DAILY Qty: 30 2RF Cholestyramine Light 4 gram powder in packet 4 g PO BID Qty: 60 1RF Rx Instructions: administer w/meal; avoid other meds within 1hr before or 4-6hr after dose famotidine [Heartburn Relief (famotidine)] 20 mg tablet 20 mg PO BID potassium chloride 20 mEq tablet extended release 20 meq PO BID fluoxetine 10 mg capsule 10 mg PO DAILY Discontinued estradiol 1 mg tablet 1 mg PO DAILY Qty: 90 3RF Discharge Orders: Discharge Order (Routine); Ordered 02/09/22 Ordered By: Marva Bob Admission Data Admit Date/Time: 02/07/22 23:04 Attending Provider: Marva Bob Admit Provider: Betzaida Sarkar Primary Care Provider: Jas Galeas Other Providers: Christiano Corrigan ; Ben Huerta ; Marline Chun Coding Level of Care Code D/C DAY MANAGEMENT >30 MINS Diagnoses Stroke-like symptom R29.90 Migraine headache G43.909 Pre-diabetes R73.03 Asthma J45.20 Asthma severity: mild Asthma persistence: intermittent Asthma complication type: uncomplicated Anxiety F41.9 Chronic pain disorder G89.4 Metabolic syndrome X E88.81 Hypertriglyceridemia E78.1 HTN, goal below 140/90 I10 Fibromyalgia M79.7 IBS (irritable bowel syndrome) K58.9 Hypokalemia E87.6 Time Spent (min) 35
[2022-02-12 00:52] LABS: B2 Glycoprotein IgG <2.0 U/mL (<20.0); B2 Glycoprotein IgM <2.0 U/mL (<20.0)
[2022-02-14 15:11] LABS: PTT LA Screen 37 sec (<=40); Protein S Functional(Activity) 102 % normal (60-140)
[2022-02-14 19:41] LABS: Factor 5 Mutation NEGATIVE
[2022-02-19 13:02] LABS: Anti Cardiolipin Ab IgG <2.0 GPL-U/mL; Anti Cardiolipin Ab IgM 2.2 MPL-U/mL; Anti-Thrombin III Activity 109 % normal (80-135)
== END 2022-02-09 17:36 | disposition home or self-care (01) | DRG 103 ==
LOC: ED 21:28 → SUATTDRO 23:04 → 1E 23:04
DX: Z79.899 Other long term (current) drug therapy; F41.9 Anxiety disorder, unspecified; G43.909 Migraine, unspecified, not intractable, without status migrainosus; F32.A Depression, unspecified; K50.90 Crohn's disease, unspecified, without complications; G89.4 Chronic pain syndrome; I10 Essential (primary) hypertension; Z87.891 Personal history of nicotine dependence; K21.9 Gastro-esophageal reflux disease without esophagitis; J45.20 Mild intermittent asthma, uncomplicated; Z91.041 Radiographic dye allergy status; E87.6 Hypokalemia; Z88.8 Allergy status to other drugs, medicaments and biological substances; K76.0 Fatty (change of) liver, not elsewhere classified; H40.9 Unspecified glaucoma; E78.1 Pure hyperglyceridemia; Z88.5 Allergy status to narcotic agent; E88.81 Metabolic syndrome and other insulin resistance; E78.5 Hyperlipidemia, unspecified; Z90.49 Acquired absence of other specified parts of digestive tract